=== PATIENT | female | born 1935 | race Caucasian/White ===

== ENCOUNTER 2017-01-31 10:51 | Inpatient (IN) | payer MEDICARE, OTHER ==
[~2017-01-31] VITALS: Ht 160 cm; Wt 76.7 kg
[2017-01-31] VITALS (8 sets, daily range): BP systolic 104–141; BP diastolic 61–82; PULSE 85–99; RESP 13–23; O2SAT 89–97
[~2017-01-31 10:51] MED LIST: DIGO125T73 PO; RIVA20TA PO; SIMV20TA4 PO
[2017-01-31 11:06] LABS: Mean Corpuscular Hemoglobin 28.4 pg (27.0-35.0); Mean Corpuscular Volume 86.6 fL (81-100)
[2017-01-31 11:07] LABS: BASOPHILS % (AUTO) 0.1 % (0-3); EOSINOPHILS % (AUTO) 0.2 % (0-5); MONOCYTES % (AUTO) 12.5 % (4-12); NEUTROPHILS % (AUTO) 74.7 % (40-74); Platelet Count 166 bil/L (150-400)
[2017-01-31] MEDS ORDERED: Nitroglycerin 2% 1 Gm Ointment TOPICAL SCH ×2 (11:25→17:30)
[2017-01-31 11:28] LABS: TROPONIN T 0.01 ug/L (0.0-0.011)
[2017-01-31 11:39] LABS: Magnesium 1.9 mg/dL (1.6-2.6)
--- NOTE | 2017-01-31 11:48 | ED.REPORT ---
HPI-General Illness Date of Service Jan 31, 2017 ED Provider: Aram Patel DO The pt is a 81 y/o female w/ a hx of HTN, A-Fib, and dementia presenting to the ED via EMS from Urgent Care complaining of intermittent L sided chest pain. She is also experiencing SOB. She has been experiencing her symptoms for a few days. The chest pain is described as lasting for a long time and she is unsure of the quality. The pt has not taken her metoprolol in 2 days and is supposed to take 25 MG daily. Nursing Notes Stated Complaint: CHEST PAIN Chief Complaint: Chest Pain Nursing Notes Reviewed: Yes Allergies: Coded Allergies: shellfish derived (Verified Allergy, Unknown, 01/31/17) diltiazem (Verified Adverse Reaction, Severe, hypotension, 01/31/17) epinephrine (Verified Adverse Reaction, Severe, uncontollable shaking, ) Uncoded Allergies: SHRIMP (Allergy, Intermediate, Nausea,Vomiting,Diarrhea, 09/24/14) Scheduled Atorvastatin (Lipitor) 10 Mg Tab 10 MG PO DAILY Cholecalciferol (Vitamin D3) (Vitamin D3) 2,000 Unit Capsule 2,000 UNIT PO DAILY Losartan Potassium (Losartan Potassium) 25 Mg Tablet 12.5 MG PO DAILY Metoprolol Succinate ER (Metoprolol Succinate ER) 25 Mg Tab.er.24h 25 MG PO DAILY Quetiapine Fumarate (Quetiapine Fumarate) 25 Mg Tablet 25 MG PO HS Warfarin Sodium (Warfarin Sodium) 5 Mg Tablet 5 MG PO Mon, Fri Warfarin Sodium (Warfarin Sodium) 5 Mg Tablet 2.5 MG PO ,,,, General Time Seen by MD: 10:57 Chief Complaint Chest pain Hx Obtained From: Patient Arrived By: Ambulance Sudden in Onset?: Yes Onset Occurred: 3 days ago Symptom Duration: Intermittent Recent Healthcare: No recent hospitalization, Recent doctor visit Similar Sx Previous: Yes Past Medical History Past Medical History sleep apnea History of previous episodes of angioedema with no etiology identified. Reports: Hyperlipidemia, Hypertension Reports: Atrial fibrillation Past Surgical History left knee Smoking History Never Smoker Social History Alcohol Use: Denies alcohol use Drug Use: Denies drug use Other Social History: Ambulatory Status Independent Review of Systems Full Review of Systems Respiratory: Reports: Shortness of breath Cardiovascular: Reports: Chest pain Complete sys rev & neg: except as marked. Physical Exam Vital Signs Vital Signs Date Time Temp Pulse Resp B/P Pulse Ox O2 Delivery O2 Flow Rate FiO2 01/31/17 14:23 91 17 104/61 96 Nasal Cannula 2 01/31/17 11:57 99 22 113/70 93 Nasal Cannula 2 01/31/17 11:43 87 23 141/75 95 Room Air 01/31/17 11:03 92 13 96 Nasal Cannula 2 01/31/17 10:53 37.5 96 15 123/72 89 Room Air Initial VS: Reviewed General/Constitutional: Well-developed, Well-nourished Head / Eyes: Atraumatic, Normocephalic, PERRL ENT: Mucous membranes moist, Conjunctiva normal, No scleral icterus Neck: Supple, Non-tender, Full range of motion Respiratory: Breath sounds normal, Clear to auscultation, No respiratory distress Extremities: Vascular intact, Neuro intact, No swelling, No tenderness Skin: Warm, Dry, No cyanosis Neurologic: Alert, Oriented, Nonfocal Cardiovascular: Heart rate NL, Heart sounds NL Heart Rate / Rhythm: Positive: Irreg irregular rhythm Interpretation & Diagnostics Lab Results Interpretation Result Diagram: 01/31/17 1059 01/31/17 1059 Test 01/31/17 10:59 01/31/17 11:36 01/31/17 12:21 White Blood Count 11.6th/mm3 (3.8-10.1) Red Blood Count 4.54mil/mm3 (3.90-5.20) Hemoglobin 12.9g/dL (12.0-15.6) Hematocrit 39.3% (35.0-46.0) Mean Corpuscular Volume 86.6fL (81-100) Mean Corpuscular Hemoglobin 28.4pg (27.0-35.0) Mean Corpuscular Hemoglobin Concent 32.8% (32.0-37.0) Red Cell Distribution Width 15.6% (12.3-15.4) Platelet Count 166bil/L (150-400) Neutrophils (%) (Auto) 74.7% (40-74) Lymphocytes (%) (Auto) 12.2% (14-46) Monocytes (%) (Auto) 12.5% (4-12) Eosinophils (%) (Auto) 0.2% (0-5) Basophils (%) (Auto) 0.1% (0-3) Sodium Level 139mEq/L (134-144) Potassium Level 3.7mEq/L (3.5-5.2) Chloride Level 104mEq/L (97-108) Carbon Dioxide Level 20mmol/L (18-29) Blood Urea Nitrogen 20mg/dL (8-27) Creatinine 0.70mg/dL (0.57-1.00) Estimat Glomerular Filtration Rate 114mL/min (>59) Glucose Level 111mg/dL (60-99) Calcium Level 9.1mg/dL (8.5-10.1) Magnesium Level 1.9mg/dL (1.6-2.6) Total Bilirubin 1.9mg/dL (0.0-1.2) Aspartate Amino Transf (AST/SGOT) 19U/L (0-50) Alanine Aminotransferase (ALT/SGPT) 13U/L (0-32) Alkaline Phosphatase 98U/L (25-165) Troponin T 0.010ug/L (0.0-0.011) Pro-B-Type Natriuretic Peptide 2293pg/mL (0-738) Total Protein 7.3g/dL (6.4-8.4) Albumin 4.1g/dL (3.4-5.0) Prothrombin Time 13.5sec (8.1-12.5) Prothromb Time International Ratio 1.26ratio Hold Plascencia Top Tube Received (Received) ECG Interpretation ECG Interpretation: Rate 72 A-fib Long R-R w/ ventricular escape Borderline T abnormalities, diffuse leads No previous ECG available for comparison Time: 12:08 Interpreted by: ED physician X-Ray Chest Interpretation Chest Xray Interpretation: IMPRESSION: 1. Moderate-sized left pleural effusion with left basilar consolidation or compressive atelectasis. Recommend short-term followup to demonstrate resolution as an underlying mass cannot be excluded. 2. Findings compatible with COPD again noted. Dictated by: Jared Hernandez M.D. on 01/31/2017 at 12:17 Approved by: Jared Hernandez M.D. on 01/31/2017 at 12:18 View: Portable, 1 view Interpretation / Wet Read by: Interpret - Radiologist Re-Eval/Medical Decision Med Decision/Clinical Course Hypoxic respiratory failure likely due to CHF and symptomatic left pleural effusion. Patient is requiring oxygen in the ER. Patient was given IV Lasix. Time of Eval: 13:14 Re-Evaluation/Progress Note: Pt rechecked. Informed pt of need for admission. Pt understands and agrees with plan for admission. All questions addressed. Consultation : Referral / Consult Name: Janette Merrill MD Consulted With: Hospitalist Call Returned at: 14:54 Seam Stay Stitcher: Will see patient, Agrees with eval, Agrees with plan, Accepts admit Counseled Regarding: Diagnosis, Lab results, Need for admission Discharge & Departure Primary Impression: Hypoxia Additional Impression: CHF (congestive heart failure) Congestive heart failure type: unspecified congestive heart failure type Congestive heart failure chronicity: unspecified congestive heart failure chronicity Qualified Code: I50.9 - Heart failure, unspecified Disposition: ADMITTED TO HOSPITAL Discharge Condition All VS Reviewed: Yes Condition: Stable Referrals: Justen López DO (PCP) Scribe Attestation Portions of this note were transcribed by Sunil Diaz. I, Dr. Chaney personally performed the history, physical exam and medical decision-making; I reviewed and confirmed the accuracy of the information in the transcribed note. copies to: Justen López Timothy S DO Jan 31, 2017 11:47 Sunil Diaz Jan 31, 2017 11:51
[2017-01-31] MEDS ORDERED: Furosemide 10 mg/mL 2 mL Inj IVPUSH ONE (12:15)
--- NOTE | 2017-01-31 12:20 | DRSVH ---
PROCEDURE: X-RAY CHEST ONE VIEW, PORTABLE ([id number]) INDICATIONS: chest pain TECHNIQUE: One view of the chest was acquired. COMPARISON: [facility], CR, XR CHEST 2VW, 03/30/2016, 13:04. [facility], CR, CHEST 1VW (PORTABLE), 10/13/2014, 12:30. FINDINGS: Surgical changes and devices: None. Lungs and pleura: There is a new moderate-sized left pleural effusion with left basilar consolidatio n or compressive atelectasis. A dense calcified nodule is redemonstrated in the right lung base. Th ere is hyperinflation of the lungs with flattening of the hemidiaphragms compatible with COPD. Mediastinum: Mediastinal contours appear unchanged. Heart size is enlarged. Bones and chest wall: No suspicious bony lesions. Overlying soft tissues appear unremarkable. IMPRESSION: 1. Moderate-sized left pleural effusion with left basilar consolidation or compressive atelectasis. Recommend short-term followup to demonstrate resolution as an underlying mass cannot be excluded. 2. Findings compatible with COPD again noted. Dictated by: Jared Hernandez M.D. on 01/31/2017 at 12:17 Approved by: Jared Hernandez M.D. on 01/31/2017 at 12:18
[2017-01-31 12:31] LABS: INR 1.26 ratio
[2017-01-31] MEDS ORDERED: QUET25TA73 PO (14:21)
[2017-01-31] MEDS ORDERED: METO25TA99 PO (14:21)
[2017-01-31] MEDS ORDERED: CHOL200047 PO (14:21)
[2017-01-31] MEDS ORDERED: LOSA25TA21 PO (14:21)
[2017-01-31] MEDS ORDERED: ATRV10T PO (14:21)
[2017-01-31] MEDS ORDERED: WARF5TAB7 PO ×2 (14:21)
[2017-01-31] MEDS ORDERED: Alum-Mag Hydrox-Simeth 30 mL Suspension PO PRN ×2 (15:15→17:30)
[2017-01-31] MEDS ORDERED: Ondansetron 2 mg/mL 2 mL Inj IVPUSH PRN ×2 (15:15→17:30)
--- NOTE | 2017-01-31 17:48 | NUR ---
ADMIT Patient arrived on floor at 1537 from ED, vitals stable but C/O left side pleuritic pain. Sats 95% on room air. Oriented to room, call light and MPC. Patient is oriented but forgetful. Bed low and locked, call light in reach, bed alarm on for safety. Med rec completed in ED by admit RN.
--- NOTE | 2017-01-31 19:33 | PCM.PHAPRO ---
Progress Date of Service: Jan 31, 2017 Warfarin Management per Pharmacy: Indication: Storke prophylaxis as patient has atrial fibrillation ([id number]- Vasc = 5) Goal INR: 2-3 Home Dose: 5 mg Mon/Fri and 2.5 mg all other days Labs: Hgb/Hct: 12.9/39.3 Plt: 166 INR: 1.26 Drug Interactions: None Drug Disease Interactions: CHF Recommendation: Warfarin 5 mg PO x 1 tonight INR ordered daily x 7 days Pharmacy to continue to monitor and adjust dose as needed. Thank You, Tabitha Wells, Pharm D. Tabitha Wells Jan 31, 2017 19:33
[2017-01-31] MEDS: Furosemide 10 mg/mL 4 mL Inj IVPUSH SCH (19:45)
--- NOTE | 2017-01-31 20:13 | PCM.HPMED ---
Subjective Date of Service Jan 31, 2017 Primary Provider: Admitting Physician: Janette Merrill MD Primary Care Physician: Justen López DO Attending Physician: Janette Merrill MD Admit Status: From the Emergency Department, 23-Hour Observation Chief Complaint: Chest pain, increasing shortness of breath History of Present Illness: This 81-year-old female who is very poor historian and no one else is at bedside. She has a history of hypertension atrial fibrillation and dementia. Having intermittent left-sided chest pain over the past several days. She also notes some increasing shortness of breath recently. Per ER M.D. patient has not been taking her metoprolol the past 2 days for unclear reasons . Patient according to our records show an echocardiogram which was done September 2016 which revealed normal LV thickness and size with mildly reduced systolic function EF 45-50%. Mild global hypokinesis of focal wall abnormalities were seen. Mildly dilated right ventricle with normal function tethering of the posterior leaflet of the mitral valve. Moderate posteriorly directed mitral regurgitation moderate aortic regurgitation and moderate tricuspid regurgitation or hypertension was present. Review of Systems: Denies fevers chills denies cough although other review of systems were reviewed and are negative except for as in history of present illness. Allergies Coded Allergies: shellfish derived (Verified Allergy, Unknown, 01/31/17) diltiazem (Verified Adverse Reaction, Severe, hypotension, 01/31/17) epinephrine (Verified Adverse Reaction, Severe, uncontollable shaking, ) Uncoded Allergies: SHRIMP (Allergy, Intermediate, Nausea,Vomiting,Diarrhea, 09/24/14) Home Medications Scheduled Atorvastatin (Lipitor) 10 Mg Tab 10 MG PO DAILY Cholecalciferol (Vitamin D3) (Vitamin D3) 2,000 Unit Capsule 2,000 UNIT PO DAILY Losartan Potassium (Losartan Potassium) 25 Mg Tablet 12.5 MG PO DAILY Metoprolol Succinate ER (Metoprolol Succinate ER) 25 Mg Tab.er.24h 25 MG PO DAILY Quetiapine Fumarate (Quetiapine Fumarate) 25 Mg Tablet 25 MG PO HS Warfarin Sodium (Warfarin Sodium) 5 Mg Tablet 5 MG PO Mon, Fri Warfarin Sodium (Warfarin Sodium) 5 Mg Tablet 2.5 MG PO Henley,Tu,We,Th,Sa PMH Past Medical History Past Medical History sleep apnea History of previous episodes of angioedema with no etiology identified. Reports: Hyperlipidemia, Hypertension Reports: Atrial fibrillation Past Surgical History left knee Family History Difficult to obtain from patient Social History Hx Alcohol Use: No Hx Substance Use: No Hx Tobacco Use: No Smoking Status: Never Smoker Living Arrangement: with Family Exam Vital Signs Vital Sign - Last Date Time Temp Pulse Resp B/P Pulse Ox O2 Delivery O2 Flow Rate FiO2 01/31/17 15:55 94 01/31/17 15:50 36.9 20 137/82 96 Nasal Cannula 2.00 Exam Constitutional elderly woman in no acute distress he is currently eating her dinner Head: Normocephalic atraumatic Eyes: PERRLA DC EOMI Chest: Clear to auscultation Neck: No adenopathy Cor: Regular rate and rhythm S1-S2 Abdomen: Soft nontender bowel sounds present Extremities: No pedal edema HEENT: No rashes Neuro: Alert and oriented 3, motor strength is intact bilaterally Psych: Affect appropriate Lab and Diagnostics Labs Laboratory Tests 72 Hours Test 01/31/17 10:59 01/31/17 11:36 01/31/17 12:21 01/31/17 20:00 White Blood Count 11.6th/mm3 (3.8-10.1) Red Blood Count 4.54mil/mm3 (3.90-5.20) Hemoglobin 12.9g/dL (12.0-15.6) Hematocrit 39.3% (35.0-46.0) Mean Corpuscular Volume 86.6fL (81-100) Mean Corpuscular Hemoglobin 28.4pg (27.0-35.0) Mean Corpuscular Hemoglobin Concent 32.8% (32.0-37.0) Red Cell Distribution Width 15.6% (12.3-15.4) Platelet Count 166bil/L (150-400) Neutrophils (%) (Auto) 74.7% (40-74) Lymphocytes (%) (Auto) 12.2% (14-46) Monocytes (%) (Auto) 12.5% (4-12) Eosinophils (%) (Auto) 0.2% (0-5) Basophils (%) (Auto) 0.1% (0-3) Sodium Level 139mEq/L (134-144) Potassium Level 3.7mEq/L (3.5-5.2) Chloride Level 104mEq/L (97-108) Carbon Dioxide Level 20mmol/L (18-29) Blood Urea Nitrogen 20mg/dL (8-27) Creatinine 0.70mg/dL (0.57-1.00) Estimat Glomerular Filtration Rate 114mL/min (>59) Glucose Level 111mg/dL (60-99) Calcium Level 9.1mg/dL (8.5-10.1) Magnesium Level 1.9mg/dL (1.6-2.6) Total Bilirubin 1.9mg/dL (0.0-1.2) Aspartate Amino Transf (AST/SGOT) 19U/L (0-50) Alanine Aminotransferase (ALT/SGPT) 13U/L (0-32) Alkaline Phosphatase 98U/L (25-165) Troponin T 0.010ug/L (0.0-0.011) Pro-B-Type Natriuretic Peptide 2293pg/mL (0-738) Total Protein 7.3g/dL (6.4-8.4) Albumin 4.1g/dL (3.4-5.0) Prothrombin Time 13.5sec (8.1-12.5) Prothromb Time International Ratio 1.26ratio Hold Plascencia Top Tube Received (Received) Result Diagram: 01/31/17 1059 01/31/17 1059 X-Rays, CTs and MRIs Date of Service: 01/31/17 1052 PROCEDURE: X-RAY CHEST ONE VIEW, PORTABLE ([id number]) INDICATIONS: chest pain TECHNIQUE: One view of the chest was acquired. COMPARISON: [facility], CR, XR CHEST 2VW, 03/30/2016, 13:04. [facility], , CHEST 1VW (PORTABLE), 10/13/2014, 12:30. FINDINGS: Surgical changes and devices: None. Lungs and pleura: There is a new moderate-sized left pleural effusion with left basilar consolidation or compressive atelectasis. A dense calcified nodule is redemonstrated in the right lung base. There is hyperinflation of the lungs with flattening of the hemidiaphragms compatible with COPD. Mediastinum: Mediastinal contours appear unchanged. Heart size is enlarged. Bones and chest wall: No suspicious bony lesions. Overlying soft tissues appear unremarkable. IMPRESSION: 1. Moderate-sized left pleural effusion with left basilar consolidation or compressive atelectasis. Recommend short-term followup to demonstrate resolution as an underlying mass cannot be excluded. 2. Findings compatible with COPD again noted. Dictated by: Jared Hernandez M.D. on 01/31/2017 at 12:17 Approved by: Jared Hernandez M.D. on 01/31/2017 at 12:18 12-lead ECG A. fib at a rate of 72 no prior EKG for comparison no obvious acute abnormalities Assessment & Plan #Acute on chronic systolic failure, present admission -We will give IV Lasix diuresis -Check serial troponins -Chek echocardiogram -Consider nuclear stress test -Reinitiate her metoprolol dosing #Chronic atrial fibrillation, present on admission -Currently rate controlled -Continue with telemetry #Anticoagulation with warfarin, chronic, present on admission -Patient is subtherapeutic -We will have pharmacy manage #DVT prophylaxis SCDs and get pharmacy to manage warfarin dosing #CODE STATUS -Full code VTE Prophylaxis: SCDs, Other (on warfarin but subtherapeutic) Resuscitation Status: CPR: Attempt Resuscitation Time spent 60 minutes Janette Merrill MD Jan 31, 2017 20:13
[2017-01-31 21:00] LABS: TROPONIN T 0.01 ug/L (0.0-0.011)
[2017-01-31] MEDS: MeTOProlol XL 25 mg ER24 Tablet PO SCH (23:15)
[2017-01-31] MEDS: Sodium Chloride LOK Flush 10 mL Syringe IVFLUSH SCH (23:22)
[2017-02-01] VITALS (9 sets, daily range): BP systolic 96–122; BP diastolic 58–79; PULSE 87–102; RESP 16–18; O2SAT 92–94
--- NOTE | 2017-02-01 03:57 | NUR ---
Activity Pt remained in room for the shift, pleasant and cooperative with cares. Alert and oriented to self and others, confused occasionally, watched TV then slept well through the night. NPO after midnight and no caffeine. Will continue to monitor pt.
[2017-02-01 06:58] LABS: INR 1.15 ratio
[2017-02-01] MEDS: Furosemide 10 mg/mL 4 mL Inj IVPUSH SCH ×2 (08:00→17:20)
[2017-02-01] MEDS: Nitroglycerin 2% 1 Gm Ointment TOPICAL SCH (08:16)
--- NOTE | 2017-02-01 08:16 | NUR ---
medications Scheduled nitro paste and IV Lasix held per CVL in preparation for cardiac stress test per CVL compliance field technician. Patient NPO since midnight, with no caffeine per instructions. Bed low and locked, call light in reach, care and frequent rounding ongoing.
[2017-02-01] MEDS ORDERED: Potassium Chloride 20 mEq SR Tablet PO ONE (08:35)
--- NOTE | 2017-02-01 11:27 | DRSVH ---
[facility] [address] [place] [address] Echocardiogram Report Name: NARENDRA CHUN ate: 02/01/2017 Height: 63 in Hospital Exam Location: [facility] Weight: 174 lb Gender: Female BSA: 1.8 m2 : 1935 Age: 81 yrs BP: 107/67 mmHg Reason For Study: Heart Failure Ordering Physician: [facility] Performed By: Sofiya Richards [facility]erring Phys[facility]: [facility] Interpretation Summary Left ventricular ejection fraction is estimated to be 40 +/- 5%. Anteroseptal hypokinesis and inferior hypokinesis in the setting of mild global hypokinesis The right ventricle is mildly dilated. Right ventricular systolic function is mildly reduced. Both atria are severely dilated. There is moderate mitral regurgitation. The mitral regurgitant jet is eccentrically directed. The aortic valve is slightly calcified. There is mild aortic regurgitation. There is moderate tricuspid regurgitation. The right ventricular systolic pressure is estimated at 33 mmHg assuming a right atrial pressure of 15 mm Hg. Procedure: A two-dimensional transthoracic echocardiogram with color flow and Doppler was performed. Comparison is made with the echocardiogram of 09/18/2016. The study quality was technically difficult. The patient was in atrial fibrillation with heart rates between 81-113 bpm during the exam. Left Ventricle: The left ventricle is normal in size. Left ventricular ejection fraction is estimated to be 40 +/- 5%. Anteroseptal hypokinesis and inferior hypokinesis in the setting of mild global hypokinesis. Diastolic function could not be accurately assessed due to atrial fibrillation. Right Ventricle: The right ventricle is mildly dilated. Right ventricular systolic function is mildly reduced. Atria: Both atria are severely dilated. The interatrial septum is intact with no evidence for an atrial septal defect. Mitral Valve: The mitral valve leaflets appear mildly thickened, but open well. There is mild mitral annular calcification. There is moderate mitral regurgitation. The mitral regurgitant jet is eccentrically directed. Aortic Valve: The aortic valve is trileaflet. The aortic valve opens well. The aortic valve is slightly calcified. There is mild aortic regurgitation. This is decreased compared to the previous study. Tricuspid Valve: The tricuspid valve leaflets are thickened and/or calcified, but open well. There is moderate tricuspid regurgitation. The right ventricular systolic pressure is estimated at 33 mmHg assuming a right atrial pressure of 15 mm Hg. Compared to the prior echo exam, there has been a decrease in the severity of pulmonary hypertension. Pulmonic Valve: The pulmonic valve is normal in structure and function. There is mild pulmonic regurgitation. Great Vessels: The aortic root is normal size. The ascending aorta is at the upper limits of normal in size. The IVC is dilated (diameter is greater than 2.1 cm) and it collapses less than 50% with a sniff. This suggests a high right atrial pressure of 15 mm Hg. Pericardium/ Pleura There is a trivial pericardial effusion noted. There is a small left-sided pleural effusion. MMode/2D Measurements & Calculations LVIDd: 4.7 cm RA long axis LVOT diam LVIDs: 3.6 cm LA A2 area: 29.2 cm FS: 23.7 % LA A4 area: 20.4 cm RA area Ao root diam IVSd: 1.2 cm LA length (vol): 5.2 cm LVPWd: 1.2 cm LA vol: 97.5 ml : 38.6 cm asc Aorta LA vol index RA vol Diam: 3.7 cm : 175.ml RA IVC diam: 2.3 cm : 96.2 mm2 LV peck. diameter/BSA LV sys. diameter/BSA (cm/m^2): 2.6 (cm/m^2): 2.0 Doppler Measurements & Calculations Ao V2 max TR max cristino: 212.6 cm/secAo V2 mean LV V1 max PG : 97.4 cm/sec TR max P.2 mmHg : 75.5 cm/sec Ao max PG PA V2 max: 36.5 cm/sec Ao V2 VTI LV V1 VTI : 3.8 mmHg PA mean P.29 mmHg : 15.3 cm Ao mean PG JACKELYN(V,D): 2.7 cm2 LVOT Max Cristino : 79.6 cm/sec JACKELYN(I,D): 2.7 cm sev ratio PA V2 mean JACKELYN indexed to BSA : 25.5 cm/sec (cm^2/m^2): 1.5 PA pr(Accel) : 41.3 mmHg Electronically signed by: Wolfgang Mendes on Reading Physician:02/01/2017 11:26 AM
--- NOTE | 2017-02-01 11:43 | NUR ---
Case Management: [facility] delivered and explained to spouse of pt at bedside. Signed original placed in chart. Copy left at bedside. Kmi Julian RN
--- NOTE | 2017-02-01 11:48 | PCM.PHAPRO ---
Progress Chest pain, increasing shortness of breath Date Feb 01-Jan INR 1.26 1.15 INR change -0.11 Warf Dose 5 mg 5 mg Luis Stroud Pharm.D Feb 01, 2017 11:48
[2017-02-01] MEDS ORDERED: Potassium Chloride Inj 20 MEQ in Dextrose 5% 250 ML IV ONE (12:00)
--- NOTE | 2017-02-01 12:04 | NUR ---
off floor Patient off floor at 1203 to nuc med. process technician aware, chart with patient.
[2017-02-01] MEDS: Sodium Chloride LOK Flush 10 mL Syringe IVFLUSH SCH ×3 (13:00→21:50)
--- NOTE | 2017-02-01 17:13 | DRSVH ---
PROCEDURE: CT CHEST WITHOUT CONTRAST ([id number]) INDICATIONS: Abnormal chest x-ray. TECHNIQUE: Noncontrast 5 mm thick sections acquired from the pulmonary apices to the posterior costophrenic angl es. 7 mm thick coronal and sagittal MIP reformats were then acquired. For radiation dose reduction, the following was used: automated exposure control, adjustment of mA and/or kV according to patient size. COMPARISON: [facility], CR, XR CHEST 1VW (PORTABLE), 01/31/2017, 11:32. FINDINGS: Image quality: There is mild motion artifact. Lungs and pleura: There is a small to moderate-sized left pleural effusion and small right effusion . There is associated compressive atelectasis in the lower lobes. An underlying component of consol idation and pneumonia cannot be excluded. Central and peripheral airways are patent and normal in ca liber. Mediastinum: Heart size is markedly enlarged. No pericardial effusion. No mediastinal adenopathy b y size criteria. There are calcified right hilar lymph nodes consistent with old granulomatous disea se. Thoracic aorta and central pulmonary arteries are normal in size. Esophagus is normal in calibe r. No hiatal hernia. Bones and chest wall: No suspicious bony lesions. No vertebral body compression fractures. No axil mahogany or supraclavicular adenopathy by size criteria. Thyroid gland demonstrates no discrete nodules. Abdomen: Visualized upper abdomen demonstrates multiple splenic calcifications consistent with old g ranulomatous disease. IMPRESSION: 1. Bilateral pleural effusions, small to moderate on the left and smaller right, with associated com pressive atelectasis. A component of consolidation and pneumonia cannot be excluded. 2. Marked cardiomegaly. Dictated by: Jared Hernandez M.D. on 02/01/2017 at 17:09 Approved by: Jared Hernandez M.D. on 02/01/2017 at 17:11
--- NOTE | 2017-02-01 18:22 | PCM.PNMED ---
Subjective Date of Service Feb 01, 2017 Subjective Patient denies any chest pain this morning. And denies any shortness of breath she is actually resting approximately a 20 angle without respiratory distress complaints Exam Vital Signs Vital Sign - Last Date Time Temp Pulse Resp B/P Pulse Ox O2 Delivery O2 Flow Rate FiO2 02/01/17 17:09 36.7 102 18 103/69 92 Room Air 02/01/17 13:45 2.00 Intake and Output 01/31/17 01/31/17 02/01/17 Cumulative From/Thru 15:00 23:00 07:00 01/31/17 10:53 - 02/01/17 05:18 Intake Total 673 ml 300 ml 973 ml Output Total 750 ml 1300 ml 2050 ml Balance -77 ml -1000 ml -1077 ml Intake Oral 673 ml 300 ml 973 ml Output Urine Total 750 ml 1300 ml 2050 ml # Bowel Movements 2 2 Exam Constitutional: Elderly female in no acute distress Head: Normocephalic/atraumatic Chest decreased breath sounds at her bases bilaterally Cor: Regular rate and rhythm S1-S2 Abdomen: Soft nontender bowel sounds present Extremities: No pedal edema Neuro: Alert and oriented 3, motor strength is intact bilaterally IVs and Medications Medications Reviewed: Medications were reviewed in detail Lab and Diagnostics Laboratory Tests 72 Hours Test 01/31/17 10:59 01/31/17 11:36 01/31/17 12:21 01/31/17 20:00 White Blood Count 11.6th/mm3 (3.8-10.1) Red Blood Count 4.54mil/mm3 (3.90-5.20) Hemoglobin 12.9g/dL (12.0-15.6) Hematocrit 39.3% (35.0-46.0) Mean Corpuscular Volume 86.6fL (81-100) Mean Corpuscular Hemoglobin 28.4pg (27.0-35.0) Mean Corpuscular Hemoglobin Concent 32.8% (32.0-37.0) Red Cell Distribution Width 15.6% (12.3-15.4) Platelet Count 166bil/L (150-400) Neutrophils (%) (Auto) 74.7% (40-74) Lymphocytes (%) (Auto) 12.2% (14-46) Monocytes (%) (Auto) 12.5% (4-12) Eosinophils (%) (Auto) 0.2% (0-5) Basophils (%) (Auto) 0.1% (0-3) Sodium Level 139mEq/L (134-144) Potassium Level 3.7mEq/L (3.5-5.2) Chloride Level 104mEq/L (97-108) Carbon Dioxide Level 20mmol/L (18-29) Blood Urea Nitrogen 20mg/dL (8-27) Creatinine 0.70mg/dL (0.57-1.00) Estimat Glomerular Filtration Rate 114mL/min (>59) Glucose Level 111mg/dL (60-99) Hemoglobin A1c 6.1% (4.8-5.6) Calcium Level 9.1mg/dL (8.5-10.1) Magnesium Level 1.9mg/dL (1.6-2.6) Total Bilirubin 1.9mg/dL (0.0-1.2) Aspartate Amino Transf (AST/SGOT) 19U/L (0-50) Alanine Aminotransferase (ALT/SGPT) 13U/L (0-32) Alkaline Phosphatase 98U/L (25-165) Troponin T 0.010ug/L (0.0-0.011) 0.010ug/L (0.0-0.011) Pro-B-Type Natriuretic Peptide 2293pg/mL (0-738) Total Protein 7.3g/dL (6.4-8.4) Albumin 4.1g/dL (3.4-5.0) Prothrombin Time 13.5sec (8.1-12.5) Prothromb Time International Ratio 1.26ratio Hold Plascencia Top Tube Received (Received) Thyroid Stimulating Hormone (TSH) 2.720uIU/mL (0.450-4.500) Digoxin Level 0.3nG/mL (0.9-2.0) Test 01/31/17 23:30 02/01/17 01:55 02/01/17 06:27 02/01/17 10:42 Troponin T < 0.010ug/L (0.0-0.011) < 0.010ug/L (0.0-0.011) < 0.010ug/L (0.0-0.011) Prothrombin Time 12.3sec (8.1-12.5) Prothromb Time International Ratio 1.15ratio Sodium Level 140mEq/L (134-144) Potassium Level 3.2mEq/L (3.5-5.2) Chloride Level 103mEq/L (97-108) Carbon Dioxide Level 22mmol/L (18-29) Blood Urea Nitrogen 21mg/dL (8-27) Creatinine 0.80mg/dL (0.57-1.00) Estimat Glomerular Filtration Rate 98mL/min (>59) Glucose Level 110mg/dL (60-99) Calcium Level 8.6mg/dL (8.5-10.1) Pro-B-Type Natriuretic Peptide 1239pg/mL (0-738) Triglycerides Level 79mg/dL (0-149) Cholesterol Level 156mg/dL (100-199) LDL Cholesterol, Calculated 77.200mg/dL (0-99) VLDL Cholesterol 15.800mg/dL HDL Cholesterol 63mg/dL (>39) Cholesterol/HDL Ratio 2.48 (0.0-4.4) Test 02/01/17 17:20 Result Diagram: 01/31/17 1059 02/01/17 0627 X-Rays, CTs and MRIs Date of Service: 01/31/17 1052 PROCEDURE: X-RAY CHEST ONE VIEW, PORTABLE ([id number]) INDICATIONS: chest pain TECHNIQUE: One view of the chest was acquired. COMPARISON: [facility], CR, XR CHEST 2VW, 03/30/2016, 13:04. [facility], , CHEST 1VW (PORTABLE), 10/13/2014, 12:30. FINDINGS: Surgical changes and devices: None. Lungs and pleura: There is a new moderate-sized left pleural effusion with left basilar consolidation or compressive atelectasis. A dense calcified nodule is redemonstrated in the right lung base. There is hyperinflation of the lungs with flattening of the hemidiaphragms compatible with COPD. Mediastinum: Mediastinal contours appear unchanged. Heart size is enlarged. Bones and chest wall: No suspicious bony lesions. Overlying soft tissues appear unremarkable. IMPRESSION: 1. Moderate-sized left pleural effusion with left basilar consolidation or compressive atelectasis. Recommend short-term followup to demonstrate resolution as an underlying mass cannot be excluded. 2. Findings compatible with COPD again noted. Dictated by: Jared Hernandez M.D. on 01/31/2017 at 12:17 Approved by: Jared Hernandez M.D. on 01/31/2017 at 12:18 Date of Service: 02/01/17 0839 PROCEDURE: CT CHEST WITHOUT CONTRAST ([id number]) INDICATIONS: Abnormal chest x-ray. TECHNIQUE: Noncontrast 5 mm thick sections acquired from the pulmonary apices to the posterior costophrenic angles. 7 mm thick coronal and sagittal MIP reformats were then acquired. For radiation dose reduction, the following was used: automated exposure control, adjustment of mA and/or kV according to patient size. COMPARISON: [facility], CR, XR CHEST 1VW (PORTABLE), 01/31/2017, 11: 32. FINDINGS: Image quality: There is mild motion artifact. Lungs and pleura: There is a small to moderate-sized left pleural effusion and small right effusion. There is associated compressive atelectasis in the lower lobes. An underlying component of consolidation and pneumonia cannot be excluded. Central and peripheral airways are patent and normal in caliber. Mediastinum: Heart size is markedly enlarged. No pericardial effusion. No mediastinal adenopathy by size criteria. There are calcified right hilar lymph nodes consistent with old granulomatous disease. Thoracic aorta and central pulmonary arteries are normal in size. Esophagus is normal in caliber. No hiatal hernia. Bones and chest wall: No suspicious bony lesions. No vertebral body compression fractures. No axillary or supraclavicular adenopathy by size criteria. Thyroid gland demonstrates no discrete nodules. Abdomen: Visualized upper abdomen demonstrates multiple splenic calcifications consistent with old granulomatous disease. IMPRESSION: 1. Bilateral pleural effusions, small to moderate on the left and smaller right , with associated compressive atelectasis. A component of consolidation and pneumonia cannot be excluded. 2. Marked cardiomegaly. Dictated by: Jared Hernandez M.D. on 02/01/2017 at 17:09 Approved by: Jared Hernandez M.D. on 02/01/2017 at 17:11 12-lead ECG A. fib at a rate of 72 no prior EKG for comparison no obvious acute abnormalities Cardiac Echo Impressions Date of Service: 02/01/17 17[address] [place] [address] [address] Echocardiogram Report Name: NARENDRA CHUN ate: 02/01/2017 Height: 63 in Hospital Exam Location: [facility] Weight: 174 lb Gender: Female BSA: 1.8 m2 : 1935 Age: 81 yrs BP: 107/67 mmHg Reason For Study: Heart Failure Ordering Physician: [facility] Performed By: Sofiya Richards Ref[facility] Phys[facility] Interpretation Summary Left ventricular ejection fraction is estimated to be 40 +/- 5%. Anteroseptal hypokinesis and inferior hypokinesis in the setting of mild global hypokinesis The right ventricle is mildly dilated. Right ventricular systolic function is mildly reduced. Both atria are severely dilated. There is moderate mitral regurgitation. The mitral regurgitant jet is eccentrically directed. The aortic valve is slightly calcified. There is mild aortic regurgitation. There is moderate tricuspid regurgitation. The right ventricular systolic pressure is estimated at 33 mmHg assuming a right atrial pressure of 15 mm Hg. Procedure: A two-dimensional transthoracic echocardiogram with color flow and Doppler was performed. Comparison is made with the echocardiogram of 09/18/2016. The study quality was technically difficult. The patient was in atrial fibrillation with heart rates between 81-113 bpm during the exam. Left Ventricle: The left ventricle is normal in size. Left ventricular ejection fraction is estimated to be 40 +/- 5%. Anteroseptal hypokinesis and inferior hypokinesis in the setting of mild global hypokinesis. Diastolic function could not be accurately assessed due to atrial fibrillation. Right Ventricle: The right ventricle is mildly dilated. Right ventricular systolic function is mildly reduced. Atria: Both atria are severely dilated. The interatrial septum is intact with no evidence for an atrial septal defect. Mitral Valve: The mitral valve leaflets appear mildly thickened, but open well. There is mild mitral annular calcification. There is moderate mitral regurgitation. The mitral regurgitant jet is eccentrically directed. Aortic Valve: The aortic valve is trileaflet. The aortic valve opens well. The aortic valve is slightly calcified. There is mild aortic regurgitation. This is decreased compared to the previous study. Tricuspid Valve: The tricuspid valve leaflets are thickened and/or calcified, but open well. There is moderate tricuspid regurgitation. The right ventricular systolic pressure is estimated at 33 mmHg assuming a right atrial pressure of 15 mm Hg. Compared to the prior echo exam, there has been a decrease in the severity of pulmonary hypertension. Pulmonic Valve: The pulmonic valve is normal in structure and function. There is mild pulmonic regurgitation. Great Vessels: The aortic root is normal size. The ascending aorta is at the upper limits of normal in size. The IVC is dilated (diameter is greater than 2.1 cm) and it collapses less than 50% with a sniff. This suggests a high right atrial pressure of 15 mm Hg. Pericardium/ Pleura There is a trivial pericardial effusion noted. There is a small left-sided pleural effusion. MMode/2D Measurements & Calculations LVIDd: 4.7 cm RA long axis LVOT diam LVIDs: 3.6 cm LA A2 area: 29.2 cm FS: 23.7 % LA A4 area: 20.4 cm RA area Ao root diam IVSd: 1.2 cm LA length (vol): 5.2 cm LVPWd: 1.2 cm LA vol: 97.5 ml : 38.6 cm asc Aorta LA vol index RA vol Diam: 3.7 cm : 175.ml RA IVC diam: 2.3 cm : 96.2 mm2 LV peck. diameter/BSA LV sys. diameter/BSA (cm/m^2): 2.6 (cm/m^2): 2.0 Doppler Measurements & Calculations Ao V2 max TR max cristino: 212.6 cm/secAo V2 mean LV V1 max PG : 97.4 cm/sec TR max P.2 mmHg : 75.5 cm/sec Ao max PG PA V2 max: 36.5 cm/sec Ao V2 VTI LV V1 VTI : 3.8 mmHg PA mean P.29 mmHg : 15.3 cm Ao mean PG JACKELYN(V,D): 2.7 cm2 LVOT Max Cristino : 79.6 cm/sec JACKELYN(I,D): 2.7 cm sev ratio PA V2 mean JACKELYN indexed to BSA : 25.5 cm/sec (cm^2/m^2): 1.5 PA pr(Accel) : 41.3 mmHg Electronically signed by: Wolfgang Mendes on Reading Physician:02/01/2017 11:26 AM Assessment & Plan #Acute on chronic systolic failure, present admission -We will give IV Lasix diuresis -Check serial troponins -Check echocardiogram -Nuclear stress testing pharmacologic his occurring today and results are pending at the time of this dictation -Reinitiate her metoprolol dosing #Chronic atrial fibrillation, present on admission -Currently rate controlled -Continue with telemetry #Anticoagulation with warfarin, chronic, present on admission -Patient is subtherapeutic -We will have pharmacy manage #DVT prophylaxis SCDs and get pharmacy to manage warfarin dosing #CODE STATUS -Full code VTE Prophylaxis: SCDs, Other (on warfarin but subtherapeutic) VTE Mechanical Devices: Intermittant Pneumatic CD Resuscitation Status: CPR: Attempt Resuscitation Time spent 30 minutes Janette Merrill MD Feb 01, 2017 18:22
[2017-02-01] MEDS: MeTOProlol XL 25 mg ER24 Tablet PO SCH (21:50)
[2017-02-02] VITALS (8 sets, daily range): BP systolic 88–112; BP diastolic 51–74; PULSE 80–97; RESP 16–18; O2SAT 92–94
--- NOTE | 2017-02-02 05:30 | NUR ---
Mentation Pt alert and oriented x1-2 at HS assessment; alert to self, able to identify where she lived and that she is in a hospital, but unable to identify current city or year. Reported current season as "spring, but just about to turn into summer." Pt stated at HS "they're going to kick me out of the hospital to make way for other patients; I just don't think it makes much sense, because I don't think they're done with me yet." Pt reoriented to current plan of care and reassured she would not be "kicked out". Bed alarm placed on at HS for patient safety. Pt able to rest between interventions, turned as tolerated r/t patient demonstrating little movement on her own in bed. VSS, tele afib 90s-100s. NPO after midnight.
[2017-02-02] MEDS: Nitroglycerin 2% 1 Gm Ointment TOPICAL SCH (07:27)
[2017-02-02] MEDS: Sodium Chloride LOK Flush 10 mL Syringe IVFLUSH SCH ×2 (07:32→16:34)
[2017-02-02] MEDS: Furosemide 10 mg/mL 4 mL Inj IVPUSH SCH ×2 (07:32→16:34)
[2017-02-02 07:40] LABS: INR 1.28 ratio
[2017-02-02 08:29] LABS: BASOPHILS % (AUTO) 0.2 % (0-3); EOSINOPHILS % (AUTO) 2.7 % (0-5); MONOCYTES % (AUTO) 12.2 % (4-12); Mean Corpuscular Hemoglobin 28.6 pg (27.0-35.0); NEUTROPHILS % (AUTO) 66.7 % (40-74); Platelet Count 188 bil/L (150-400)
--- NOTE | 2017-02-02 11:00 | NUR ---
Social Work: Initial Assessment Data: Pt is an 81 y/o female admitted for hypoxia, CHF. Pt's PCP is Dr López, pt's insurance is [employer] plan of [place] Medicare. EMR reviewed. Pt discussed in multidisciplinary rounds. MACHINE LEAD BURNER met with pt and spouse at bedside, role explained. Pt and spouse state they live together in [place] in a single story home with 4 stairs inside where pt uses a cane occasionally and owns a walker that she does not use. Pt does not drive, has no hx of HH or SNF, no LTC or VA benefits. RN documented that pt is a 2 person total assist currently and pt reports that she does not think she could get up and walk currently, this is below baseline. MACHINE LEAD BURNER will discuss possible PT need with MD, he states he will order PT for pt. MACHINE LEAD BURNER anticipates need for either HH or SNF. MACHINE LEAD BURNER will continue to follow. Assessment: Pt who is independent at baseline, currently not capable of self care. Plan: PT will work with pt and make recommendations, MACHINE LEAD BURNER will follow and and await likely MD orders for HH or SNF. MACHINE LEAD BURNER will continue to follow. VANDANA Garber Addendum: 02/02/17 at 1103 by MILAGROS GARLAND Amended: Links added.
--- NOTE | 2017-02-02 12:36 | NUR ---
off floor/stress test pt transported via W/C to [place] for a stress test.
--- NOTE | 2017-02-02 13:30 | PCM.PHAPRO ---
Progress Date of Service: Feb 02, 2017 Warfarin dosing Date Feb 01-Feb 02-Jan INR 1.26 1.15 1.28 INR change -0.11 0.13 Warf Dose 5 mg 5 mg 5MG Keara Manuel PharmD Feb 02, 2017 13:30
--- NOTE | 2017-02-02 14:51 | DRSVH ---
PROCEDURE: 1 DAY PHARMACOLOGICAL STRESS TEST Rest and pharmacological stress myocardial perfusion SPECT with gated imaging and ejection fraction RADIOPHARMACEUTICAL: 7.18 mCi Tc-99m tetrafosmin IV at rest and 24.1 mCi Tc-99m tetrafosmin IV at pea k effect of pharmacological stress. A taf-swe-vuhuojfo was performed. INDICATIONS: 81 year-old female with hypertension, atrial fibrillation, and dementia, with intermitte nt left chest pain for several days. TECHNIQUE: Radiopharmaceutical was injected at peak stress test, and also at rest. SPECT images wer e obtained. SPECT myocardial perfusion images were displayed in short axis, horizontal long axis, an d vertical long axis views. Gated images were reviewed using [employer] software. COMPARISON: None. CARDIAC STRESS: A pharmacologic stress test was performed under the supervision of an attending staff, using an infus ion of Data Elite. Hemodynamic data: There is normal heart rate response to pharmacologic stress, as well as hypotensiv e response (baseline blood pressure 102/70 decreasing to 84/60 at one minute). Symptoms: The patient denied anginal chest pain but reported dizziness. Aminophylline: 100 mg intravenous aminophylline administered. EKG: No diagnostic changes of ischemia. There is background atrial fibrillation, with occasional pr emature ventricular contractions. FINDINGS: Raw data: There is good myocardial uptake of radiotracer. No significant motion artifacts. Left ventricle function: Gated images demonstrate normal left ventricular wall thickening. No segme ntal wall motion abnormalities. No transient ischemic dilation. Left ventricle resting end diastoli c volume is 59 mL. Left ventricle stress ejection fraction is 64%; normal range is above 45%. Myocardial perfusion: There is mildly decreased tracer uptake involving the basal portion of the lat eral wall on stress images; however, this finding does not persist on corresponding prone imaging. Th ere is otherwise normal distribution of activity in the right and left ventricular myocardium. No fi xed or reversible perfusion defects. IMPRESSION: 1. Normal myocardial perfusion study for ischemia. Mildly decreased tracer uptake involving the basal portion of the lateral wall does not persist on prone imaging, therefore most consistent with diaphr agmatic attenuation artifact rather than true pathology. 2. Normal left ventricle cavity size, without segmental wall motion abnormalities. Calculated left ve ntricle ejection fraction is within normal limits. 3. Transient hypotensive response to pharmacologic stress testing, resolving after the administration of intravenous aminophylline. PQRS ATTESTATIONS: Measure 322 - Is this imaging test primarily performed on a low-risk surgery patient for preoperative evaluation within 30 days preceding their low-risk non-cardiac surgery? Low-risk surgery is defined as cardiac or myocardial infarction less than 1%, including (but not limited to) endoscopic pr ocedures, superficial procedures, cataract surgery, and excisional breast surgery: Answer: No Measure 323 - Is this imaging test performed primarily for the monitoring of an asymptomatic patient who had percutaneous coronary intervention on the visit date or within 2 years of the visit date? An swer: No Measure 324 - Is this imaging test performed primarily for the initial detection and risk assessment on an asymptomatic, low coronary heart disease patient? Low CHD risk definition = clinicians should consider the maximum number of available patient factors used to estimate risk based on Clarence (A TP III criteria), typically age, gender, diabetes, smoking status, and use of blood pressure medicati on, and integrate age appropriate estimates for missing elements, such as LDL or standard blood press ure. Answer: No Dictated by: Jamar Tapia M.D. on 02/02/2017 at 14:38 Approved by: Jamar Tapia M.D. on 02/02/2017 at 14:48
--- NOTE | 2017-02-02 14:51 | NUR ---
low BP pt is asymptomatic, states that she is not having dizziness or lightheadedness. This RN elevated pt's legs and will recheck BP after pt finishes her meal.
--- NOTE | 2017-02-02 16:01 | NUR ---
Evaluation completed. Please go to "Notes" then click on "Assessments and Notes" (bottom left corner of screen). Then select appropriate discipline tab on top of screen.
--- NOTE | 2017-02-02 16:34 | PCM.PNMED ---
Subjective Date of Service Feb 02, 2017 Subjective pt was talking very slowly, tangent about her sx, poor historian, reported slow declining of her function for 6montH, no clear etiology. rather gained wt including increasing abdominal girdle reported good UOP to lasix 40mg iv awaits stress test today Exam Vital Signs Vital Sign - Last Date Time Temp Pulse Resp B/P Pulse Ox O2 Delivery O2 Flow Rate FiO2 02/02/17 09:34 36.6 97 18 97/64 93 Room Air 02/01/17 13:45 2.00 Intake and Output 02/01/17 02/01/17 02/02/17 Cumulative From/Thru 15:00 23:00 07:00 01/31/17 10:53 - 02/02/17 05:50 Intake Total 800 ml 200 ml 1973 ml Output Total 501 ml 2551 ml Balance 299 ml 200 ml -578 ml Intake Oral 800 ml 200 ml 1973 ml Output Urine Total 500 ml 2550 ml Urine/Stool Mix 1 ml 1 ml # Voids 0 0 # Bowel Movements 0 0 2 Exam Fairly weak, slow response and talking, NAD, comfortably laying down on the bed mild JVD, MMM, no LAD RRR, nl s1, s2 no mrg CTAB, no w,c S,NT,very distended, not tense, BS+ warm, no edema, pulses 2/2, IVs and Medications Medications Reviewed: Medications were reviewed in detail Lab and Diagnostics Result Diagram: 02/02/1770402/02/17704 X-Rays, CTs and MRIs Date of Service: 01/31/17 1052 PROCEDURE: X-RAY CHEST ONE VIEW, PORTABLE ([id number]) INDICATIONS: chest pain TECHNIQUE: One view of the chest was acquired. COMPARISON: [facility], CR, XR CHEST 2VW, 03/30/2016, 13:04. [facility], CR, CHEST 1VW (PORTABLE), 10/13/2014, 12:30. FINDINGS: Surgical changes and devices: None. Lungs and pleura: There is a new moderate-sized left pleural effusion with left basilar consolidation or compressive atelectasis. A dense calcified nodule is redemonstrated in the right lung base. There is hyperinflation of the lungs with flattening of the hemidiaphragms compatible with COPD. Mediastinum: Mediastinal contours appear unchanged. Heart size is enlarged. Bones and chest wall: No suspicious bony lesions. Overlying soft tissues appear unremarkable. IMPRESSION: 1. Moderate-sized left pleural effusion with left basilar consolidation or compressive atelectasis. Recommend short-term followup to demonstrate resolution as an underlying mass cannot be excluded. 2. Findings compatible with COPD again noted. Dictated by: Jared Hernandez M.D. on 01/31/2017 at 12:17 Approved by: Jared Hernandez M.D. on 01/31/2017 at 12:18 Date of Service: 02/01/17 0839 PROCEDURE: CT CHEST WITHOUT CONTRAST ([id number]) INDICATIONS: Abnormal chest x-ray. TECHNIQUE: Noncontrast 5 mm thick sections acquired from the pulmonary apices to the posterior costophrenic angles. 7 mm thick coronal and sagittal MIP reformats were then acquired. For radiation dose reduction, the following was used: automated exposure control, adjustment of mA and/or kV according to patient size. COMPARISON: [facility], CR, XR CHEST 1VW (PORTABLE), 01/31/2017, 11: 32. FINDINGS: Image quality: There is mild motion artifact. Lungs and pleura: There is a small to moderate-sized left pleural effusion and small right effusion. There is associated compressive atelectasis in the lower lobes. An underlying component of consolidation and pneumonia cannot be excluded. Central and peripheral airways are patent and normal in caliber. Mediastinum: Heart size is markedly enlarged. No pericardial effusion. No mediastinal adenopathy by size criteria. There are calcified right hilar lymph nodes consistent with old granulomatous disease. Thoracic aorta and central pulmonary arteries are normal in size. Esophagus is normal in caliber. No hiatal hernia. Bones and chest wall: No suspicious bony lesions. No vertebral body compression fractures. No axillary or supraclavicular adenopathy by size criteria. Thyroid gland demonstrates no discrete nodules. Abdomen: Visualized upper abdomen demonstrates multiple splenic calcifications consistent with old granulomatous disease. IMPRESSION: 1. Bilateral pleural effusions, small to moderate on the left and smaller right , with associated compressive atelectasis. A component of consolidation and pneumonia cannot be excluded. 2. Marked cardiomegaly. Dictated by: Jared Hernandez M.D. on 02/01/2017 at 17:09 Approved by: Jared Hernandez M.D. on 02/01/2017 at 17:11 12-lead ECG A. fib at a rate of 72 no prior EKG for comparison no obvious acute abnormalities Cardiac Echo Impressions Date of Service: 02/01/[address] [facility] [address] [place] [address] Echocardiogram Report Name: NARENDRA CHUN ate: 02/01/2017 Height: 63 in Hospital Exam Location: [facility] Weight: 174 lb Gender: Female BSA: 1.8 m2 : 1935 Age: 81 yrs BP: 107/67 mmHg Reason For Study: Heart Failure Ordering Physician: HOSPITALIST [facility] Performed By: Sofiya Richards [facility] Interpret[facility] Summary Left ventricular ejection fraction is estimated to be 40 +/- 5%. Anteroseptal hypokinesis and inferior hypokinesis in the setting of mild global hypokinesis The right ventricle is mildly dilated. Right ventricular systolic function is mildly reduced. Both atria are severely dilated. There is moderate mitral regurgitation. The mitral regurgitant jet is eccentrically directed. The aortic valve is slightly calcified. There is mild aortic regurgitation. There is moderate tricuspid regurgitation. The right ventricular systolic pressure is estimated at 33 mmHg assuming a right atrial pressure of 15 mm Hg. Procedure: A two-dimensional transthoracic echocardiogram with color flow and Doppler was performed. Comparison is made with the echocardiogram of 09/18/2016. The study quality was technically difficult. The patient was in atrial fibrillation with heart rates between 81-113 bpm during the exam. Left Ventricle: The left ventricle is normal in size. Left ventricular ejection fraction is estimated to be 40 +/- 5%. Anteroseptal hypokinesis and inferior hypokinesis in the setting of mild global hypokinesis. Diastolic function could not be accurately assessed due to atrial fibrillation. Right Ventricle: The right ventricle is mildly dilated. Right ventricular systolic function is mildly reduced. Atria: Both atria are severely dilated. The interatrial septum is intact with no evidence for an atrial septal defect. Mitral Valve: The mitral valve leaflets appear mildly thickened, but open well. There is mild mitral annular calcification. There is moderate mitral regurgitation. The mitral regurgitant jet is eccentrically directed. Aortic Valve: The aortic valve is trileaflet. The aortic valve opens well. The aortic valve is slightly calcified. There is mild aortic regurgitation. This is decreased compared to the previous study. Tricuspid Valve: The tricuspid valve leaflets are thickened and/or calcified, but open well. There is moderate tricuspid regurgitation. The right ventricular systolic pressure is estimated at 33 mmHg assuming a right atrial pressure of 15 mm Hg. Compared to the prior echo exam, there has been a decrease in the severity of pulmonary hypertension. Pulmonic Valve: The pulmonic valve is normal in structure and function. There is mild pulmonic regurgitation. Great Vessels: The aortic root is normal size. The ascending aorta is at the upper limits of normal in size. The IVC is dilated (diameter is greater than 2.1 cm) and it collapses less than 50% with a sniff. This suggests a high right atrial pressure of 15 mm Hg. Pericardium/ Pleura There is a trivial pericardial effusion noted. There is a small left-sided pleural effusion. MMode/2D Measurements & Calculations LVIDd: 4.7 cm RA long axis LVOT diam LVIDs: 3.6 cm LA A2 area: 29.2 cm FS: 23.7 % LA A4 area: 20.4 cm RA area Ao root diam IVSd: 1.2 cm LA length (vol): 5.2 cm LVPWd: 1.2 cm LA vol: 97.5 ml : 38.6 cm asc Aorta LA vol index RA vol Diam: 3.7 cm : 175.ml RA IVC diam: 2.3 cm : 96.2 mm2 LV peck. diameter/BSA LV sys. diameter/BSA (cm/m^2): 2.6 (cm/m^2): 2.0 Doppler Measurements & Calculations Ao V2 max TR max cristino: 212.6 cm/secAo V2 mean LV V1 max PG : 97.4 cm/sec TR max P.2 mmHg : 75.5 cm/sec Ao max PG PA V2 max: 36.5 cm/sec Ao V2 VTI LV V1 VTI : 3.8 mmHg PA mean P.29 mmHg : 15.3 cm Ao mean PG JACKELYN(V,D): 2.7 cm2 LVOT Max Cristino : 79.6 cm/sec JACKELYN(I,D): 2.7 cm sev ratio PA V2 mean JACKELYN indexed to BSA : 25.5 cm/sec (cm^2/m^2): 1.5 PA pr(Accel) : 41.3 mmHg Electronically signed by: Wolfgang Mendes on Reading Physician:02/01/2017 11:26 AM Assessment & Plan acute, active #persistent low grade chest pain, POA, unlikely cardiac, Stress test on 02/02 negative. serial Tropx2 negative, control pain with nitro SL, consider add morphine #Acute on chronic systolic failure, present admission, TTE 02/01 showed EF40-45%, Anteroseptal hypokinesis and inferior hypokinesis in the setting of mild global hypokinesis, no severe valvular dz. pt was started on lasix 40mg iv bid -i/o net-700cc with current regimen, continue for now -consider cardiology w/u for further invasive study -monitor daily wt, i/o, renal function closely -replete lytes target k>4, Mg>2 #Increased abdominal size, possible ascites. POA, likely resulted from CHF -will consider abd US or CT if not responding to lasix mild encephalopathy, chronic deconditioning, POA, unclear etiologies. no s/s of malignancy. pt likely has baseline dementia. -monitor neurocheck qshift, chronic, stable #Chronic atrial fibrillation, Currently rate controlled, Continue with telemetry , continue BB #Anticoagulation with warfarin, chronic, present on admissionm Patient is subtherapeutic on admission, resumed coumadin #DVT prophylaxis SCD until INR in tx range, #CODE STATUS Full code dispo: likely 3-4more days, VTE Prophylaxis: SCDs, Other (on warfarin but subtherapeutic) VTE Mechanical Devices: Venous Foot Pump Resuscitation Status: CPR: Attempt Resuscitation Time spent 35min Juanita Stinson MD Feb 02, 2017 12:36
--- NOTE | 2017-02-02 18:08 | NUR ---
low BP pt has had two readings of low BP. pt is laying in bed and states that she feels "fine". Denies being dizzy/lightheaded or SOB.
[2017-02-02] MEDS: MeTOProlol XL 25 mg ER24 Tablet PO SCH (19:55)
[2017-02-03] VITALS (9 sets, daily range): BP systolic 95–118; BP diastolic 60–77; PULSE 87–103; RESP 15–24; O2SAT 90–97
[2017-02-03] MEDS: Sodium Chloride LOK Flush 10 mL Syringe IVFLUSH SCH ×3 (00:08→16:30)
--- NOTE | 2017-02-03 02:23 | NUR ---
BP HS BP 103/68. HS Metoprolol given but Cozar withheld. Repeat BP 95/67. Asymptomatic with low BP while laying in bed and denies any complaints when ambulating earlier in shift with hypotension. Currently resting without any complaints.
[2017-02-03 06:28] LABS: BASOPHILS % (AUTO) 0.2 % (0-3); EOSINOPHILS % (AUTO) 2.5 % (0-5); MONOCYTES % (AUTO) 11.3 % (4-12); Mean Corpuscular Hemoglobin 28.5 pg (27.0-35.0); Mean Corpuscular Volume 85.7 fL (81-100); NEUTROPHILS % (AUTO) 74.3 % (40-74); Platelet Count 212 bil/L (150-400)
[2017-02-03 07:28] LABS: INR 1.53 ratio
[2017-02-03 07:31] LABS: Magnesium 1.9 mg/dL (1.6-2.6); Phosphorus 3.9 mg/dL (2.5-4.9)
[2017-02-03] MEDS: Nitroglycerin 2% 1 Gm Ointment TOPICAL SCH (08:30)
[2017-02-03] MEDS: Furosemide 10 mg/mL 4 mL Inj IVPUSH SCH (08:32)
--- NOTE | 2017-02-03 10:45 | DRSVH ---
PROCEDURE: X-RAY CHEST ONE VIEW, PORTABLE ([id number]) INDICATIONS: ventricular failure hypoxia TECHNIQUE: One view of the chest was acquired. COMPARISON: [facility], CR, XR CHEST 1VW (PORTABLE), 01/31/2017, 11:32. FINDINGS: Surgical changes and devices: None. Lungs and pleura: Unchanged left pleural effusion with adjacent atelectasis and retrocardiac consolid ation. Lung volumes are decreased Mediastinum: Cardiac silhouette and mediastinal contours are stable. Bones and chest wall: No suspicious bony lesions. Overlying soft tissues appear unremarkable. IMPRESSION: Decreased lung volumes, otherwise, grossly unchanged appearance since 01/31/17 Dictated by: Kimo Reyes M.D. on 02/03/2017 at 10:38 Approved by: Kimo Reyes M.D. on 02/03/2017 at 10:41
--- NOTE | 2017-02-03 10:45 | ABG ---
DateTimeAnalyzed 10:33:48 -_ pH ____7.497 - 7.350 7.450 pCO2 ___34.6__ -mmHg 35.0 45.0 pO2 119 -mmHg 69.0 116 HCO3- ___26.8__ -mmol/L 22.0 26.0 ABE ____3.5__ -mmol/L tHb ___14.2__ -g/dL O2Hb ___98.2__ -% COHb ____2.0__ -% 1.5 MetHb ____0.0__ -% sO2 __100.0__ -% FIO2 ___35.0__ -% Drawn By RC - Date/Time Notified____ 10:45:00 -_ Spontaneous_RR 22 -b/min Liter_Flow ____4.00_ -L/min Oxygen Device 1 __CANNULA - Notified By RC - Notified Whom ___DR. SONG - K+ ____3.5__ -mmol/L tO2 ___19.7__ -Vol% Jesus test _Positive -
--- NOTE | 2017-02-03 11:48 | DRSVH ---
PROCEDURE: CT ABDOMEN AND PELVIS WITHOUT CONTRAST ([id number]) INDICATIONS: possible ascities splenic calcification TECHNIQUE: After the administration of oral contrast, 5 mm thick sections acquired from the diaphragms to the sy mphysis. 5 mm coronal and sagittal reformats were performed. For radiation dose reduction, the foll owing was used: automated exposure control, adjustment of mA and/or kV according to patient size. COMPARISON: None. FINDINGS: Image quality: Excellent. ABDOMEN: Lung bases: Small left pleural effusion with adjacent atelectasis. There is also dependent consolidat ion seen within the right lung base. Heart is enlarged. There is trace pericardial fluid. Solid organs: Liver and spleen are normal in size. Gallbladder contains a 2 mm calculus without lacie dence of acute inflammation. Pancreas is unremarkable. No adrenal nodules. Both kidneys are normal in size, without hydronephrosis or nephrolithiasis. Peritoneum and bowel: Bowel loops demonstrate normal wall thickness and caliber. No free fluid or a ir. Normal appendix. Large amount of stool is present the rectum is grossly unremarkable. No evidenc e of acute diverticulitis. Nodes and vessels: No retroperitoneal or mesenteric adenopathy by size criteria. Aorta and inferior vena cava are normal in size. Miscellaneous: No ventral hernias. PELVIS: Genitourinary: Bladder wall thickness is normal. Miscellaneous: Small bilateral fat-containing inguinal hernias Bones: No suspicious bony lesions. No vertebral body compression fractures. IMPRESSION: Bilateral small pleural effusions with adjacent atelectasis. Recommend clinical correlation to exclud e aspiration/pneumonia. No ascites. Large amount of stool. Normal appendix. No evidence of bowel obstruction. Incidental cholelithiasis. Cardiomegaly. Trace paracardial effusion. Dictated by: Kimo Reyes M.D. on 02/03/2017 at 11:41 Approved by: Kimo Reyes M.D. on 02/03/2017 at 11:45
--- NOTE | 2017-02-03 11:53 | NUR ---
Transfer to [facility] Patient had decreased mentation this morning. Patient oxygen saturations decreased to 90% on RA and was placed on 4L supplemental oxygen with saturations at 96%. Patient was not able to follow commands at all times and had difficulty swallowing. Patient had difficulty speaking and labored breathing was observed. Patient was difficult to transfer to [facility] [place]. notified. Patient report called to [facility] nurse, Gertrude Webster Patient transferred to room 2026 via bed. was in room at time and notified of transfer. prosthetics technician called and telemetry boxes switched upon arrival of [facility].
--- NOTE | 2017-02-03 13:45 | PCM.PNMED ---
Subjective Date of Service Feb 03, 2017 Subjective Last night, bp dropped, therefore evening dose Losartan was stopped. i/o daily net -400 -500 for past 2days pt was extremely lethargic this AM, easily fell asleep, inattentive noted mildly labored breathing, stat CXR ABG showed no hypoxemia or hypercapnia , pt maintained airways for close observation, pt was transferred to [facility] CT abd with oral contrast obtained given distended abdomen. showed extensive stools otherwise unremarkable Exam Vital Signs Vital Sign - Last Date Time Temp Pulse Resp B/P Pulse Ox O2 Delivery O2 Flow Rate FiO2 02/03/17 09:08 102 02/03/17 08:55 36.6 18 116/77 90 Room Air 02/01/17 13:45 2.00 Intake and Output 02/02/17 02/02/17 02/03/17 Cumulative From/Thru 15:00 23:00 07:00 01/31/17 10:53 - 02/03/17 06:09 Intake Total 400 ml 200 ml 2573 ml Output Total 1000 ml 700 ml 4251 ml Balance -600 ml -500 ml -1678 ml Intake Oral 400 ml 200 ml 2573 ml IV Total 0 ml 0 ml Output Urine Total 1000 ml 700 ml 4250 ml Urine/Stool Mix 1 ml # Voids 0 # Bowel Movements 0 2 Exam Fairly weak, slow response and talking, NAD, comfortably laying down on the bed mild JVD, MMM, no LAD RRR, nl s1, s2 no mrg CTAB, no w,c S,NT, distended, not tense, BS+ warm, no edema, pulses 2/2, IVs and Medications Medications Reviewed: Medications were reviewed in detail Lab and Diagnostics Result Diagram: 02/03/1711 02/03/17 0611 X-Rays, CTs and MRIs Date of Service: 01/31/17 1052 PROCEDURE: X-RAY CHEST ONE VIEW, PORTABLE ([id number]) INDICATIONS: chest pain TECHNIQUE: One view of the chest was acquired. COMPARISON: [facility], CR, XR CHEST 2VW, 03/30/2016, 13:04. [facility], CR, CHEST 1VW (PORTABLE), 10/13/2014, 12:30. FINDINGS: Surgical changes and devices: None. Lungs and pleura: There is a new moderate-sized left pleural effusion with left basilar consolidation or compressive atelectasis. A dense calcified nodule is redemonstrated in the right lung base. There is hyperinflation of the lungs with flattening of the hemidiaphragms compatible with COPD. Mediastinum: Mediastinal contours appear unchanged. Heart size is enlarged. Bones and chest wall: No suspicious bony lesions. Overlying soft tissues appear unremarkable. IMPRESSION: 1. Moderate-sized left pleural effusion with left basilar consolidation or compressive atelectasis. Recommend short-term followup to demonstrate resolution as an underlying mass cannot be excluded. 2. Findings compatible with COPD again noted. Dictated by: Jared Hernandez M.D. on 01/31/2017 at 12:17 Approved by: Jared Hernandez M.D. on 01/31/2017 at 12:18 Date of Service: 02/01/17 0839 PROCEDURE: CT CHEST WITHOUT CONTRAST ([id number]) INDICATIONS: Abnormal chest x-ray. TECHNIQUE: Noncontrast 5 mm thick sections acquired from the pulmonary apices to the posterior costophrenic angles. 7 mm thick coronal and sagittal MIP reformats were then acquired. For radiation dose reduction, the following was used: automated exposure control, adjustment of mA and/or kV according to patient size. COMPARISON: [facility], CR, XR CHEST 1VW (PORTABLE), 01/31/2017, 11: 32. FINDINGS: Image quality: There is mild motion artifact. Lungs and pleura: There is a small to moderate-sized left pleural effusion and small right effusion. There is associated compressive atelectasis in the lower lobes. An underlying component of consolidation and pneumonia cannot be excluded. Central and peripheral airways are patent and normal in caliber. Mediastinum: Heart size is markedly enlarged. No pericardial effusion. No mediastinal adenopathy by size criteria. There are calcified right hilar lymph nodes consistent with old granulomatous disease. Thoracic aorta and central pulmonary arteries are normal in size. Esophagus is normal in caliber. No hiatal hernia. Bones and chest wall: No suspicious bony lesions. No vertebral body compression fractures. No axillary or supraclavicular adenopathy by size criteria. Thyroid gland demonstrates no discrete nodules. Abdomen: Visualized upper abdomen demonstrates multiple splenic calcifications consistent with old granulomatous disease. IMPRESSION: 1. Bilateral pleural effusions, small to moderate on the left and smaller right , with associated compressive atelectasis. A component of consolidation and pneumonia cannot be excluded. 2. Marked cardiomegaly. Dictated by: Jared Hernandez M.D. on 02/01/2017 at 17:09 Approved by: Jared Hernandez M.D. on 02/01/2017 at 17:11 12-lead ECG A. fib at a rate of 72 no prior EKG for comparison no obvious acute abnormalities Cardiac Echo Impressions Date of Service: 02/01/17 1728 [facility] [address] [place] [address] Echocardiogram Report Name: NARENDRA CHUN ate: 02/01/2017 Height: 63 in Hospital Exam Location: [facility] Weight: 174 lb Gender: Female BSA: 1.8 m2 : 1935 Age: 81 yrs BP: 107/67 mmHg Reason For Study: Heart Failure Ordering Physician: HOSPITALIST [facility] Performed By: Sofiya Richards Referring Physician: [facility] Interpretation Summary Left ventricular ejection fraction is estimated to be 40 +/- 5%. Anteroseptal hypokinesis and inferior hypokinesis in the setting of mild global hypokinesis The right ventricle is mildly dilated. Right ventricular systolic function is mildly reduced. Both atria are severely dilated. There is moderate mitral regurgitation. The mitral regurgitant jet is eccentrically directed. The aortic valve is slightly calcified. There is mild aortic regurgitation. There is moderate tricuspid regurgitation. The right ventricular systolic pressure is estimated at 33 mmHg assuming a right atrial pressure of 15 mm Hg. Procedure: A two-dimensional transthoracic echocardiogram with color flow and Doppler was performed. Comparison is made with the echocardiogram of 09/18/2016. The study quality was technically difficult. The patient was in atrial fibrillation with heart rates between 81-113 bpm during the exam. Left Ventricle: The left ventricle is normal in size. Left ventricular ejection fraction is estimated to be 40 +/- 5%. Anteroseptal hypokinesis and inferior hypokinesis in the setting of mild global hypokinesis. Diastolic function could not be accurately assessed due to atrial fibrillation. Right Ventricle: The right ventricle is mildly dilated. Right ventricular systolic function is mildly reduced. Atria: Both atria are severely dilated. The interatrial septum is intact with no evidence for an atrial septal defect. Mitral Valve: The mitral valve leaflets appear mildly thickened, but open well. There is mild mitral annular calcification. There is moderate mitral regurgitation. The mitral regurgitant jet is eccentrically directed. Aortic Valve: The aortic valve is trileaflet. The aortic valve opens well. The aortic valve is slightly calcified. There is mild aortic regurgitation. This is decreased compared to the previous study. Tricuspid Valve: The tricuspid valve leaflets are thickened and/or calcified, but open well. There is moderate tricuspid regurgitation. The right ventricular systolic pressure is estimated at 33 mmHg assuming a right atrial pressure of 15 mm Hg. Compared to the prior echo exam, there has been a decrease in the severity of pulmonary hypertension. Pulmonic Valve: The pulmonic valve is normal in structure and function. There is mild pulmonic regurgitation. Great Vessels: The aortic root is normal size. The ascending aorta is at the upper limits of normal in size. The IVC is dilated (diameter is greater than 2.1 cm) and it collapses less than 50% with a sniff. This suggests a high right atrial pressure of 15 mm Hg. Pericardium/ Pleura There is a trivial pericardial effusion noted. There is a small left-sided pleural effusion. MMode/2D Measurements & Calculations LVIDd: 4.7 cm RA long axis LVOT diam LVIDs: 3.6 cm LA A2 area: 29.2 cm FS: 23.7 % LA A4 area: 20.4 cm RA area Ao root diam IVSd: 1.2 cm LA length (vol): 5.2 cm LVPWd: 1.2 cm LA vol: 97.5 ml : 38.6 cm asc Aorta LA vol index RA vol Diam: 3.7 cm : 175.ml RA IVC diam: 2.3 cm : 96.2 mm2 LV peck. diameter/BSA LV sys. diameter/BSA (cm/m^2): 2.6 (cm/m^2): 2.0 Doppler Measurements & Calculations Ao V2 max TR max cristino: 212.6 cm/secAo V2 mean LV V1 max PG : 97.4 cm/sec TR max P.2 mmHg : 75.5 cm/sec Ao max PG PA V2 max: 36.5 cm/sec Ao V2 VTI LV V1 VTI : 3.8 mmHg PA mean P.29 mmHg : 15.3 cm Ao mean PG JACKELYN(V,D): 2.7 cm2 LVOT Max Cristino : 79.6 cm/sec JACKELYN(I,D): 2.7 cm sev ratio PA V2 mean JACKELYN indexed to BSA : 25.5 cm/sec (cm^2/m^2): 1.5 PA pr(Accel) : 41.3 mmHg Electronically signed by: Wolfgang Mendes on Reading Physician:02/01/2017 11:26 AM Assessment & Plan acute, active worsening acute on chronic encephalopathy, chronic deconditioning with poor function, POA, unclear etiologies. no s/s of malignancy. pt likely has baseline dementia. pt noted to be mildly hypoxic, started O2 supplement 02/03. potential ddx: hypoxia, severe ileus, adrenal insufficiency, malignancy. -Today, pt was more lethargic, concerning for ventilatory failure with increased work of breathing, currently maintained airways well, -monitor neurocheck q1h at [facility] -will consider further brain images if worsens, -consider repeat ABG, BiPAP based on respiratory status -added random cortisol this AM lab #Acute on chronic systolic failure, present admission, TTE 02/01 showed EF40-45%, Anteroseptal hypokinesis and inferior hypokinesis in the setting of mild global hypokinesis, no severe valvular dz. pt was started on lasix 40mg iv bid -i/o [id number], however became lethargic, hypotensive, hold off on diuresis today. received morning dose. -will consider cardiology w/u for further invasive study -monitor daily wt, i/o, renal function closely -replete lytes target k>4, Mg>2 #Increased abdominal size, POA, likely due to ileus, abd CT on 02/03 showed extensive stools, but no acute pathology -will try ducolax suppository, consider enema, PO regimen once pt is more awake chronic, stable #Low grade chest pain, POA, unlikely cardiac, Stress test on 02/02 negative. serial Tropx2 negative, control pain with nitro SL, pain resolved. #Chronic atrial fibrillation, Currently rate controlled, Continue with telemetry , continue BB #Anticoagulation with warfarin, chronic, present on admissionm Patient is subtherapeutic on admission, resumed coumadin #DVT prophylaxis SCD until INR in tx range, #CODE STATUS Full code, again confirmed with today dispo: pending VTE Prophylaxis: SCDs, Other (on warfarin but subtherapeutic) VTE Mechanical Devices: Venous Foot Pump Resuscitation Status: CPR: Attempt Resuscitation Time spent 35min Juanita Stinson MD Feb 03, 2017 13:45
[2017-02-03 18:18] LABS: BASOPHILS % (AUTO) 0.2 % (0-3); EOSINOPHILS % (AUTO) 0.7 % (0-5); MONOCYTES % (AUTO) 13.5 % (4-12); Mean Corpuscular Hemoglobin 28.4 pg (27.0-35.0); Mean Corpuscular Volume 83.3 fL (81-100); NEUTROPHILS % (AUTO) 73.8 % (40-74); Platelet Count 218 bil/L (150-400)
--- NOTE | 2017-02-03 18:30 | NUR ---
Shift summary Pt was somnolent from arrival to the unit until about 1730 this evening. At which point she became alert and awake. She was able to answer assessment questions and stated that she was in the hospital and that she was aware she moved into a different room. She was given a suppository earlier in the shift with no results. She then was given an enema, awaiting results. The patient denies pain. O2 sats stable on 4L NC. Breathing is shallow but unlabored. PO meds held this evening due to somnolence. Pt unable to be cleared by speech therapy during the day as she was unable to follow commands.
[2017-02-03 18:58] LABS: Magnesium 1.9 mg/dL (1.6-2.6)
[2017-02-03] MEDS: MeTOProlol XL 25 mg ER24 Tablet PO SCH (21:00)
[2017-02-04] VITALS (9 sets, daily range): BP systolic 93–113; BP diastolic 60–73; PULSE 89–112; RESP 16–18; O2SAT 93–97
[2017-02-04] MEDS: Sodium Chloride LOK Flush 10 mL Syringe IVFLUSH SCH ×3 (00:30→16:30)
[2017-02-04 04:11] LABS: BASOPHILS % (AUTO) 0.2 % (0-3); EOSINOPHILS % (AUTO) 2.2 % (0-5); MONOCYTES % (AUTO) 15.1 % (4-12); Mean Corpuscular Hemoglobin 28.4 pg (27.0-35.0); Mean Corpuscular Volume 84.8 fL (81-100); NEUTROPHILS % (AUTO) 70.2 % (40-74); Platelet Count 208 bil/L (150-400)
[2017-02-04 04:24] LABS: INR 1.83 ratio
[2017-02-04 04:32] LABS: Phosphorus 3.2 mg/dL (2.5-4.9)
--- NOTE | 2017-02-04 07:45 | NUR ---
Mentation/Urine and Stool Retention/Respiratory Pt slept on and off throughout the lamp stack developer and remained confused. Pt did not know where she was and was only oriented to self and her . Since pt was NPO until a swallow eval can be performed, a BG check was performed and pt tried to scratch my face and jerked her hand away. Eventually, I was able to test the blood and pt's BG was 114. Pt tried to attack the label cutter who came in for the AM lab but was able to be calmed down and the tech was able to draw the blood for labs. Pt was bladder scanned after not making urine for the night and the scan showed >539ml. Dayshift RN was notified. Pt continues to not have a BM. Pt's O2 was titrated down to 1L oxymask with the pt's SpO2 93-96%. Pt is on a continuous pulse ox to monitor O2 since the pt was not being compliant with keeping supplemental O2 on in the beginning of the shift. Pt has kept oxymask on throughout the shift with no issues.
[2017-02-04] MEDS: Nitroglycerin 2% 1 Gm Ointment TOPICAL SCH (08:30)
--- NOTE | 2017-02-04 08:59 | DRSVH ---
PROCEDURE: CT BRAIN WITHOUT CONTRAST ([id number]) INDICATIONS: 81 year-old female with encephalopathy. TECHNIQUE: Noncontrast 4.5 mm thick angled axial sections acquired from the foramen magnum to the vertex, with c oronal reformats. COMPARISON: [facility], CT, CT BRAIN WO CON, 06/18/2015, 0:15. [facility], CT, BRAIN W/O CONTRAST, 10/13/2014, 12:23. [facility], CT, BRAIN W/O CONTRAST, 11/14/2013, 15:23. FINDINGS: Image quality: Excellent. CSF spaces: Basal cisterns are patent. No extra-axial fluid collections. The ventricles are symmet jazlyn in size and shape. Brain: No intracranial bleeds or masses. There are mild periventricular and deep white matter chron ic small vessel ischemic changes. There is intracranial internal carotid artery atherosclerosis. Skull and face: Calvarium and visualized facial bones appear intact, without suspicious lesions. Sinuses: Visualized sinuses and mastoids are clear. IMPRESSION: No acute intracranial abnormalities. Mild periventricular and deep white matter chronic s mall vessel ischemic change as before. Dictated by: Jamar Tapia M.D. on 02/04/2017 at 8:54 Approved by: Jamar Tapia M.D. on 02/04/2017 at 8:56
--- NOTE | 2017-02-04 10:25 | NUR ---
Evaluation completed. Please go to "Notes" then click on "Assessments and Notes" (bottom left corner of screen). Then select appropriate discipline tab on top of screen.
[2017-02-04] MEDS: Polyethylene Glycol (PEG) 17 Gm Powder PO PRN (13:29)
[2017-02-04] MEDS: Senna-Docusate 8.6-50 mg Tablet PO PRN ×2 (13:29→22:12)
--- NOTE | 2017-02-04 13:59 | NUR ---
Social Work: Discharge planning D&A: Per P.T. notes and MD in AM rounds, d/c recommendation continues to be for SNF via cabulance. BRIDGE CRANE OPERATOR updated pt and provided pt with SNF choices list. Pt and pt to review choices and facilities. dairy helper informed pt and of the chance that insurance will not cover transportation; pt and reports understanding. P: Pt likely to d/c to SNF via cabulance; preferences pending. BRIDGE CRANE OPERATOR will continue to follow. VANDANA Whitlock
--- NOTE | 2017-02-04 16:42 | PCM.PNMED ---
Subjective Date of Service Feb 04, 2017 Subjective 81-year-old woman with hypertension atrial fibrillation and dementia, presented with chest pain and increasing dyspnea, received IV diuresis for acute CHF exacerbation, then transferred to [facility] care due to increasing somnolence. Today she is alert and communicative. indicates she is at her mental status baseline. She has no dyspnea or chest pain. Exam Vital Signs Vital Sign - Last Date Time Temp Pulse Resp B/P Pulse Ox O2 Delivery O2 Flow Rate FiO2 02/04/17 16:13 36.7 103 16 93/60 97 Nasal Cannula 1.00 Intake and Output 02/03/17 02/03/17 02/04/17 Cumulative From/Thru 15:00 23:00 07:00 01/31/17 10:53 - 02/04/17 06:40 Intake Total 0 ml 0 ml 2573 ml Output Total 400 ml 0 ml 4651 ml Balance -400 ml 0 ml -2078 ml Intake Oral 0 ml 0 ml 2573 ml IV Total 0 ml Output Urine Total 400 ml 0 ml 4650 ml Urine/Stool Mix 1 ml # Voids 0 # Bowel Movements 2 Exam General: Elderly woman with moderately limited cognition in no acute distress HEENT: sclerae anicteric, oral mucosa moist Neck: no apparent JVD Chest: Generally clear to auscultation Cardiac: S1S2, no gallop Abdomen: BS normal, non-tender Extremities: No pitting edema Neuro: Alert, cranial nerves symmetric, motor strength mildly reduced diffusely , reflexes diminished IVs and Medications Medications Reviewed: Medications were reviewed in detail Lab and Diagnostics Result Diagram: 02/04/17 0355 02/04/17 0355 X-Rays, CTs and MRIs PROCEDURE: X-RAY CHEST ONE VIEW, PORTABLE ([id number]) IMPRESSION: 1. Moderate-sized left pleural effusion with left basilar consolidation or compressive atelectasis. Recommend short-term followup to demonstrate resolution as an underlying mass cannot be excluded. 2. Findings compatible with COPD again noted. Dictated by: Jared Hernandez M.D. on 01/31/2017 at 12:17 PROCEDURE: CT CHEST WITHOUT CONTRAST ([id number]) IMPRESSION: 1. Bilateral pleural effusions, small to moderate on the left and smaller right , with associated compressive atelectasis. A component of consolidation and pneumonia cannot be excluded. 2. Marked cardiomegaly. Dictated by: Jared Hernandez M.D. on 02/01/2017 at 17:09 . 12-lead ECG A. fib at a rate of 72 no prior EKG for comparison no obvious acute abnormalities Cardiac Echo Impressions Echocardiogram Report Name: NARENDRA CHUN Study Date: 02/01/2017 Interpretation Summary Left ventricular ejection fraction is estimated to be 40 +/- 5%. Anteroseptal hypokinesis and inferior hypokinesis in the setting of mild global hypokinesis The right ventricle is mildly dilated. Right ventricular systolic function is mildly reduced. Both atria are severely dilated. There is moderate mitral regurgitation. The mitral regurgitant jet is eccentrically directed. The aortic valve is slightly calcified. There is mild aortic regurgitation. There is moderate tricuspid regurgitation. The right ventricular systolic pressure is estimated at 33 mmHg assuming a right atrial pressure of 15 mm Hg. . Assessment & Plan Acute, active: # Acute on chronic systolic failure, present admission, TTE 02/01 showed EF40-45% ,Anteroseptal hypokinesis and inferior hypokinesis in the setting of mild global hypokinesis, no severe valvular dz. pt was started on lasix 40mg iv bid - Continue with less aggressive oral diuretic regimen -replete lytes target k>4, Mg>2 # Leukocytosis, present on admission. No clinical focus of infection evident. - Check UA - Monitor vital signs and WBC count # Hypokalemia, not present on admission. Likely related to intravenous diuresis. - Oral supplement as tolerated - IV electrolyte management order set - Repeat BMP in a.m. # Increased abdominal size, POA, likely due to ileus, abd CT on 02/03 showed extensive stools, but no acute pathology - PO laxative regimen Resolving, chronic, stable: # Acute on chronic encephalopathy. pt likely has baseline dementia. pt noted to be mildly hypoxic, started O2 supplement 02/03. Self-limited encephalopathy 1 -2 days after admission likely due to effects of diuresis, sleep disorder and underlying dementia. No evidence of acute neurologic event. - Resolved - Continue to monitor - Avoid anticholinergics and benzodiazepines #Low grade chest pain, POA, unlikely cardiac, Stress test on 02/02 negative. serial Tropx2 negative, control pain with nitro SL, pain resolved. #Chronic atrial fibrillation, Currently rate controlled, Continue with telemetry , continue BB #Anticoagulation with warfarin, chronic, present on admission Patient is subtherapeutic on admission, resumed coumadin #DVT prophylaxis SCD until INR in tx range, #CODE STATUS Full code, again confirmed with today dispo: pending VTE Prophylaxis: SCDs, Other (on warfarin but subtherapeutic) VTE Mechanical Devices: Venous Foot Pump Resuscitation Status: CPR: Attempt Resuscitation Time spent 35 minutes Arnol Carrion MD Feb 04, 2017 16:42 Cardiac Echo Impressions Echocardiogram Report Name: NARENDRA CHUN Study Date: 02/01/2017 Interpretation Summary Left ventricular ejection fraction is estimated to be 40 +/- 5%. Anteroseptal hypokinesis and inferior hypokinesis in the setting of mild global hypokinesis The right ventricle is mildly dilated. Right ventricular systolic function is mildly reduced. Both atria are severely dilated. There is moderate mitral regurgitation. The mitral regurgitant jet is eccentrically directed. The aortic valve is slightly calcified. There is mild aortic regurgitation. There is moderate tricuspid regurgitation. The right ventricular systolic pressure is estimated at 33 mmHg assuming a right atrial pressure of 15 mm Hg. . Assessment & Plan acute, active worsening acute on chronic encephalopathy, chronic deconditioning with poor function, POA, unclear etiologies. no s/s of malignancy. pt likely has baseline dementia. pt noted to be mildly hypoxic, started O2 supplement 02/03. potential ddx: hypoxia, severe ileus, adrenal insufficiency, malignancy. -Today, pt was more lethargic, concerning for ventilatory failure with increased work of breathing, currently maintained airways well, -monitor neurocheck q1h at [facility] -will consider further brain images if worsens, -consider repeat ABG, BiPAP based on respiratory status -added random cortisol this AM lab #Acute on chronic systolic failure, present admission, TTE 02/01 showed EF40-45%, Anteroseptal hypokinesis and inferior hypokinesis in the setting of mild global hypokinesis, no severe valvular dz. pt was started on lasix 40mg iv bid -i/o [id number], however became lethargic, hypotensive, hold off on diuresis today. received morning dose. -will consider cardiology w/u for further invasive study -monitor daily wt, i/o, renal function closely -replete lytes target k>4, Mg>2 #Increased abdominal size, POA, likely due to ileus, abd CT on 02/03 showed extensive stools, but no acute pathology -will try ducolax suppository, consider enema, PO regimen once pt is more awake chronic, stable #Low grade chest pain, POA, unlikely cardiac, Stress test on 02/02 negative. serial Tropx2 negative, control pain with nitro SL, pain resolved. #Chronic atrial fibrillation, Currently rate controlled, Continue with telemetry , continue BB #Anticoagulation with warfarin, chronic, present on admissionm Patient is subtherapeutic on admission, resumed coumadin #DVT prophylaxis SCD until INR in tx range, #CODE STATUS Full code, again confirmed with today dispo: pending VTE Prophylaxis: SCDs, Other (on warfarin but subtherapeutic) VTE Mechanical Devices: Venous Foot Pump Resuscitation Status: CPR: Attempt Resuscitation Arnol Carrion MD Feb 04, 2017 16:42
[2017-02-04 16:45] LABS: APPEARANCE,URINE CLEAR (CLEAR,HAZY); COLOR,URINE DARK YELLOW (YELLOW); OCCULT BLOOD,URINE SMALL (NEGATIVE); PH,URINE 5.5 (5.0-8.0)
--- NOTE | 2017-02-04 19:02 | NUR ---
Activity Pt worked with PT today and ambulated in her room. With staff she got up to the bedside commode x2 with minimal assistance. She denied dizziness or SOB. Continuing to be stable on 1L o2 via nasal cannula. She did urinate in the commode but still has not had a BM.
[2017-02-04] MEDS: MeTOProlol XL 25 mg ER24 Tablet PO SCH (22:12)
[2017-02-05 00:18] VITALS: BP 95/66; PULSE 103; RESP 16; O2SAT 92
[2017-02-05] MEDS: Sodium Chloride LOK Flush 10 mL Syringe IVFLUSH SCH ×2 (00:30→07:50)
[2017-02-05 03:43] VITALS: BP 95/67; PULSE 90; RESP 16; O2SAT 95
[2017-02-05 04:45] LABS: INR 1.76 ratio
--- NOTE | 2017-02-05 06:50 | NUR ---
IV Access/GI Attempts were made to get a new PIV. Pt still has not IV site. IV therapy may need to be called. Pt did have 200cc of urine this AM on the BSC that was dark and was pink tinged at the bottom of the hat in the BSC. Still waiting on the urine culture that is pending. Pt still has not had a BM. Senna was given again last night.
[2017-02-05] MEDS: Nitroglycerin 2% 1 Gm Ointment TOPICAL SCH (07:50)
[2017-02-05] MEDS: Senna-Docusate 8.6-50 mg Tablet PO PRN (07:57)
[2017-02-05 08:36] VITALS: BP 131/80; PULSE 89; RESP 18; O2SAT 94
[2017-02-05 10:10] VITALS: PULSE 109
[2017-02-05] MEDS: Polyethylene Glycol (PEG) 17 Gm Powder PO PRN (10:29)
[2017-02-05 12:32] VITALS: BP 102/60; PULSE 81; RESP 18; O2SAT 93
[2017-02-05] MEDS ORDERED: POTA10TA38 PO (13:38)
[2017-02-05] MEDS ORDERED: FURO40TA4 PO (13:38)
--- NOTE | 2017-02-05 13:45 | PCM.DIMED ---
Discharge Instructions Date of Service Feb 05, 2017 Dates of Hospitalization Jan 31, 2017 at 14:58 Discharge Diagnosis Discharge Diagnosis Acute on chronic systolic congestive heart failure; Atrial fibrillation with chronic warfarin, subtherapeutic INR; Hypokalemia; Acute encephalopathy, with moderate chronic cognitive impairment; Constipation with abdominal distention; Chest pain, noncardiac; Medication Instructions Additional med instructions The diuretic pill furosemide (Lasix) has been added. There is also a prescription for a potassium supplement due to your low potassium level. These have been sent to the [facility] pharmacy. The INR level has been below the target of 2-3. You should take 5 mg warfarin every other day alternating with 2.5 mg and have your INR checked within 2 weeks. Test Results Test Results INR values daily since 02/01/17: 1.15, 1.28, 1.53, 1.83, 1.76 (on 5 mg warfarin) Diet Discharge Diet: No restrictions, Other (low-salt) Activity Discharge Activity: No restrictions Call your provider Call your provider for: Shortness of breath Patient Instructions Patient Instructions We have prescribed a visiting registered nurse to check vital signs, respiratory status, and medications twice per week. We have also ordered home physical therapy twice per week. Follow-up plan Home health RN and PT. Currently establishing care with Dr. Will López at [facility] family medicine; she will need a brief posthospitalization appointment within 1-2 weeks. She needs an appointment with INR clinic within 2 weeks. Follow-up Provider: Justen López DO Follow-up with PCP in: 2 weeks (posthospitalization follow-up visit) Arnol Carrion MD Feb 05, 2017 13:45
--- NOTE | 2017-02-05 14:20 | NUR ---
Gave access to [facility] per [employer] and MD order Addendum: 02/05/17 at 1605 by MELISSA DEMPSEY CM Faxed facesheet to [facility] per [employer]
--- NOTE | 2017-02-05 15:50 | NUR ---
Discharge Pt discharged with at 1600. Pt's vitals stable, A&Ox1 to self, tele removed. All discharge instructions gone over and understood, changes in medications gone over with and understood, prescriptions sent to [facility] to be filled. Pt wheeled out to car via wheelchair. All belongings taken with.
--- NOTE | 2017-02-05 16:00 | NUR ---
Social Work Note: Discharge Data& Assessment: Per pt is medically ready to discharge home with [facility] RN and PT. Aleisha Pinto is a 81 year old female admitted on 01/31/2017 for hypoxia and CHF. Per pt is medically improved and ready for discharge. PT had previously recommended SNF. SW discussed pt ambulation with , RN and pt . Per RN and pt , pt ambulating independently to the restroom and ambulating in the halls with some assistance. Pt feels like she is close to her baseline and pt would rather go home. Pt does agree she could use some strengthening though to get fully back to her baseline and is agreeable to home health services. Per order, SW provided list for preferences. Pt and pt do not have a preference and agreed to go with whichever company can open with pt the soonest. SW spoke with Rose from [facility] and Xiomara from [facility] , both agencies are able to open with pt on Sunday. Pt and pt notified. Pt agreed to refer to the rotating calender. Referral made to [facility] , access provided and [facility] faxed. Pt and pt denies any other needs. No other discharge needs identified. All updated and agreeable to plan. Plan: Per pt is medically ready to discharge home via POV home with [facility] RN and PT to open services with pt on Sunday. Pt and pt denies any other needs. No other discharge needs identified. All updated and agreeable to plan. VANDANA Menno
--- NOTE | 2017-02-05 19:24 | PCM.DC.MED ---
Discharge Summary Date of Service Feb 05, 2017 Dates of Hospitalization Date of Hospital Admission Jan 31, 2017 at 14:58 Date of Discharge: Feb 05, 2017 Providers: Admitting Physician: Janette Merrill MD Primary Care Physician: Justen López DO Attending Physician: Dina Ramirez MD Diagnosis at Time of Discharge Diagnosis at Time of Discharge Acute on chronic systolic congestive heart failure; Atrial fibrillation with chronic warfarin, subtherapeutic INR; Hypokalemia; Acute encephalopathy, with moderate chronic cognitive impairment; Constipation with abdominal distention; Chest pain, noncardiac; Procedures XRay, CTs & MRIs PROCEDURE: X-RAY CHEST ONE VIEW, PORTABLE ([id number]) IMPRESSION: 1. Moderate-sized left pleural effusion with left basilar consolidation or compressive atelectasis. Recommend short-term followup to demonstrate resolution as an underlying mass cannot be excluded. 2. Findings compatible with COPD again noted. Dictated by: Jared Hernandez M.D. on 01/31/2017 at 12:17 PROCEDURE: CT CHEST WITHOUT CONTRAST ([id number]) IMPRESSION: 1. Bilateral pleural effusions, small to moderate on the left and smaller right , with associated compressive atelectasis. A component of consolidation and pneumonia cannot be excluded. 2. Marked cardiomegaly. Dictated by: Jared Hernandez M.D. on 02/01/2017 at 17:09 . ECG 12 Lead A. fib at a rate of 72 no prior EKG for comparison no obvious acute abnormalities Cardiac Echo Impression Echocardiogram Report Name: NARENDRA CHUN Study Date: 02/01/2017 Interpretation Summary Left ventricular ejection fraction is estimated to be 40 +/- 5%. Anteroseptal hypokinesis and inferior hypokinesis in the setting of mild global hypokinesis The right ventricle is mildly dilated. Right ventricular systolic function is mildly reduced. Both atria are severely dilated. There is moderate mitral regurgitation. The mitral regurgitant jet is eccentrically directed. The aortic valve is slightly calcified. There is mild aortic regurgitation. There is moderate tricuspid regurgitation. The right ventricular systolic pressure is estimated at 33 mmHg assuming a right atrial pressure of 15 mm Hg. . Brief History History of Present Illness (per admission note): This 81-year-old female who is very poor historian and no one else is at bedside. She has a history of hypertension atrial fibrillation and dementia. Having intermittent left-sided chest pain over the past several days. She also notes some increasing shortness of breath recently. Per ER M.D. patient has not been taking her metoprolol the past 2 days for unclear reasons . Patient according to our records show an echocardiogram which was done September 2016 which revealed normal LV thickness and size with mildly reduced systolic function EF 45-50%. Mild global hypokinesis of focal wall abnormalities were seen. Mildly dilated right ventricle with normal function tethering of the posterior leaflet of the mitral valve. Moderate posteriorly directed mitral regurgitation moderate aortic regurgitation and moderate tricuspid regurgitation or hypertension was present. Hospital Course # Acute on chronic systolic failure, present admission, TTE 02/01 showed EF40-45% , Anteroseptal hypokinesis and inferior hypokinesis in the setting of mild global hypokinesis, no severe valvular dz. pt was started on lasix 40mg iv bid, resulting in approximately 750 mL fluid deficit daily. Weight on admission 78.9 kg. Weight at discharge 76.7 kg. - Discharged on new prescription of Lasix 40 mg by mouth daily, with 30 mEq potassium supplementation - She will benefit from primary care follow-up to assess volume status on diuretic regimen - She continues on ARB and beta sánchez # Anticoagulation with warfarin, chronic, present on admission Patient is subtherapeutic on admission, resumed coumadin - Advised to take alternating 5 mg and 2.5 mg warfarin (increased from 2.5-6 days per week with 5 mg once per week) and follow-up in pro time clinic within 1 week # Dementia weakness and mobility impairment, chronic. She was able to ambulate to a limited extent in the hallway, but would have difficulty ambulating for medical appointments or outpatient therapies. She requires home health services including RN and physical therapy twice per week for 6 weeks. - Home health services to be reviewed by primary care doctor # Acute on chronic encephalopathy. pt likely has baseline dementia. pt noted to be mildly hypoxic, started O2 supplement 02/03. Self-limited encephalopathy 1 -2 days after admission likely due to effects of diuresis, sleep disorder and underlying dementia. No evidence of acute neurologic event. - Hospital delirium resolved within 1-2 days spontaneously # Low grade chest pain, POA. She reported left lateral lower rib constant pain. No associated pulmonary symptoms or findings. Overall appearance did not convey significant pain or distress although she verbalizes this complaint frequently. Unlikely cardiac, Stress test on 02/02 negative. serial Tropx2 negative, control pain with nitro SL, pain resolved. # Chronic atrial fibrillation, Currently rate controlled, Continue with telemetry, continue BB # Leukocytosis, present on admission. She sustained a consistent WBC count of 11.5-12.4 with 70% neutrophils. She was completely afebrile. She reported no urinary symptoms and there was no pyuria. She does have bacteriuria. She was given fosfomycin treatment for Escherichia coli bacteriuria. - Consider follow-up for leukocytosis, as this does not seem related to infection # Hypokalemia, not present on admission. Likely related to intravenous diuresis. - Low-dose potassium supplement added. # Increased abdominal size, POA, likely due to ileus, abd CT on 02/03 showed extensive stools, but no acute pathology - PO laxative regimen - Abdomen was benign at time of discharge # Medical Primary care needs. Her PCP is recently retired. She is currently on schedule to see Dr. López at [facility] family medicine, with first appointment scheduled in April. It would be highly desirable to see her at least briefly for a posthospitalization follow-up visit within 1-2 weeks. #CODE STATUS Full code, again confirmed with . Exam Vital Signs (Last) Date Time Temp Pulse Resp B/P Pulse Ox O2 Delivery O2 Flow Rate FiO2 02/05/17 12:32 36.5 81 18 102/60 93 Room Air 02/04/17 21:58 1.00 Exam General: Elderly woman with bright affect but moderate cognitive impairment HEENT: sclerae anicteric, oral mucosa moist Neck: no apparent JVD Chest: Generally clear to auscultation, few basilar crackles Cardiac: S1S2, no gallop Abdomen: BS normal, non-tender Extremities: No pitting edema Neuro: Alert, cranial nerves symmetric, motor strength mildly reduced diffusely, Test 01/31/17 10:59 01/31/17 12:21 01/31/17 20:00 02/01/17 06:27 Hemoglobin A1c 6.1% (4.8-5.6) Hold Plascencia Top Tube Received (Received) Thyroid Stimulating Hormone (TSH) 2.720uIU/mL (0.450-4.500) Digoxin Level 0.3nG/mL (0.9-2.0) Triglycerides Level 79mg/dL (0-149) Cholesterol Level 156mg/dL (100-199) LDL Cholesterol, Calculated 77.200mg/dL (0-99) VLDL Cholesterol 15.800mg/dL HDL Cholesterol 63mg/dL (>39) Cholesterol/HDL Ratio 2.48 (0.0-4.4) Test 02/01/17 17:20 02/03/17 06:11 02/04/17 03:55 02/04/17 16:34 Troponin T < 0.010ug/L (0.0-0.011) Pro-B-Type Natriuretic Peptide 608.3pg/mL (0-738) Procalcitonin 0.06ng/mL (0.00-0.08) Cortisol 22.8ug/dL (.) White Blood Count 11.5th/mm3 (3.8-10.1) Red Blood Count 4.75mil/mm3 (3.90-5.20) Hemoglobin 13.5g/dL (12.0-15.6) Hematocrit 40.3% (35.0-46.0) Mean Corpuscular Volume 84.8fL (81-100) Mean Corpuscular Hemoglobin 28.4pg (27.0-35.0) Mean Corpuscular Hemoglobin Concent 33.5% (32.0-37.0) Red Cell Distribution Width 15.2% (12.3-15.4) Platelet Count 208bil/L (150-400) Neutrophils (%) (Auto) 70.2% (40-74) Lymphocytes (%) (Auto) 12.1% (14-46) Monocytes (%) (Auto) 15.1% (4-12) Eosinophils (%) (Auto) 2.2% (0-5) Basophils (%) (Auto) 0.2% (0-3) Phosphorus Level 3.2mg/dL (2.5-4.9) Magnesium Level 2.0mg/dL (1.6-2.6) Total Bilirubin 1.6mg/dL (0.0-1.2) Aspartate Amino Transf (AST/SGOT) 32U/L (0-50) Alanine Aminotransferase (ALT/SGPT) 27U/L (0-32) Alkaline Phosphatase 100U/L (25-165) Total Protein 7.2g/dL (6.4-8.4) Albumin 3.8g/dL (3.4-5.0) Urine Color Dark yellow (YELLOW) Urine Appearance Clear (CLEAR,HAZY) Urine pH 5.5 (5.0-8.0) Urine Specific [place] 1.025 (1.003-1.035) Urine Protein Negativemg/dL (NEG,TRACE) Urine Glucose (UA) Negativemg/dL (NEGATIVE) Urine Ketones Negativemg/dL (NEGATIVE) Urine Occult Blood Small (NEGATIVE) Urine Nitrite Negative (NEGATIVE) Urine Bilirubin Negative (NEGATIVE) Urine Urobilinogen 4.0mg/dL (NORMAL) Urine Leukocyte Esterase Trace (NEGATIVE) Urine RBC 0-2/hpf (0-2) Urine WBC 0-5/hpf (0-5) Urine Epithelial Cells None/hpf (NONE-MOD) Urine Crystals None seen (NONE SEEN) Urine Bacteria Few/hpf (NONE-FEW) Urine Hyaline Casts None/lpf (NONE) Urine Granular Casts None seen (NONE SEEN) Urine Waxy Casts None seen (NONE SEEN) Urine Red Blood Cell Casts None seen (NONE SEEN) Urine White Blood Cell Casts None seen (NONE SEEN) Urine Mucus Present (None Seen) Urine Trichomonas None seen (NONE SEEN) Urine Yeast None (NONE SEEN) Urinalysis Comment None Urine Culture Reflexed Indicated Test 02/05/17 03:50 Prothrombin Time 19.0sec (8.1-12.5) Prothromb Time International Ratio 1.76ratio Sodium Level 138mEq/L (134-144) Potassium Level 3.5mEq/L (3.5-5.2) Chloride Level 97mEq/L (97-108) Carbon Dioxide Level 25mmol/L (18-29) Blood Urea Nitrogen 33mg/dL (8-27) Creatinine 0.73mg/dL (0.57-1.00) Estimat Glomerular Filtration Rate 109mL/min (>59) Glucose Level 119mg/dL (60-99) Calcium Level 9.3mg/dL (8.5-10.1) Discharge Medications Discharge Medications Atorvastatin (Lipitor) 10 Mg Tab 10 MG PO DAILY (Reported) Cholecalciferol (Vitamin D3) (Vitamin D3) 2,000 Unit Capsule 2,000 UNIT PO DAILY (Reported) Furosemide (Furosemide) 40 Mg Tablet 40 MG PO DAILY Prescribed by: DINA RAMIREZ MD Losartan Potassium (Losartan Potassium) 25 Mg Tablet 12.5 MG PO DAILY (Reported ) Metoprolol Succinate ER (Metoprolol Succinate ER) 25 Mg Tab.er.24h 25 MG PO DAILY (Reported) Potassium Chloride (Potassium Chloride) 10 Meq Tab.er.prt 10 MEQ PO TIDAC Prescribed by: DINA RAMIREZ MD Quetiapine Fumarate (Quetiapine Fumarate) 25 Mg Tablet 25 MG PO HS (Reported) Warfarin Sodium (Warfarin Sodium) 5 Mg Tablet 5 MG PO Mon, Fri (Reported) Warfarin Sodium (Warfarin Sodium) 5 Mg Tablet 2.5 MG PO [place],,,,Sa (Reported ) Additional med instructions The diuretic pill furosemide (Lasix) has been added. There is also a prescription for a potassium supplement due to your low potassium level. These have been sent to the [facility] pharmacy. The INR level has been below the target of 2-3. You should take 5 mg warfarin every other day alternating with 2.5 mg and have your INR checked within 2 weeks. Followup Plan Disposition: Patient is discharged home with home health. Follow-up plan Home health RN and PT. Currently establishing care with Dr. Will López at [facility] family medicine; she will need a brief posthospitalization appointment within 1-2 weeks. She needs an appointment with INR clinic within 2 weeks. Discharge Diet: No restrictions, Other (low-salt) Discharge Activity: No restrictions Patient Instructions We have prescribed a visiting registered nurse to check vital signs, respiratory status, and medications twice per week. We have also ordered home physical therapy twice per week. Follow-up Provider: Justen López DO Follow-up with PCP in: 2 weeks (posthospitalization follow-up visit) Time spent 35 minutes copies to: Justen López Jeffrey W MD Feb 05, 2017 13:47
== END 2017-02-05 16:00 | disposition home health service (06) | DRG 291 ==
LOC: SED 10:51 → MPC 14:58 → OBSVTOIN 14:58 → PCC 02-03 12:06
PROVIDERS: ADMIT Specialist; ATTEND Specialist
PROC: 4A033R1 Measurement of Arterial Saturation, Peripheral, Percutaneous Approach (ICD-10-PCS; principal; 2017-02-03)
DX: I50.23 Acute on chronic systolic (congestive) heart failure (principal); J96.01 Acute respiratory failure with hypoxia; G93.49 Other encephalopathy; K56.7 Ileus, unspecified; I35.1 Nonrheumatic aortic (valve) insufficiency; I34.0 Nonrheumatic mitral (valve) insufficiency; I07.1 Rheumatic tricuspid insufficiency; I48.2 Chronic atrial fibrillation; R82.71 Bacteriuria; D72.829 Elevated white blood cell count, unspecified; I10 Essential (primary) hypertension; E78.5 Hyperlipidemia, unspecified; Z79.01 Long term (current) use of anticoagulants; E87.6 Hypokalemia; R07.89 Other chest pain; F03.90 Unspecified dementia, unspecified severity, without behavioral disturbance, psychotic disturbance, mood disturbance, and anxiety; K59.00 Constipation, unspecified; B96.20 Unspecified Escherichia coli [E. coli] as the cause of diseases classified elsewhere